=== PATIENT | female | born 1945 | race Caucasian/White ===

== ENCOUNTER 2016-07-22 09:45 | Inpatient (IN) | payer OTHER, MEDICARE ==
[~2016-07-22] VITALS: Ht 165.1 cm; Wt 78.9 kg
--- NOTE | 2016-07-22 10:00 | NUR ---
PT SIB DR NIETO FOR ABDOMINAL PAIN. PT STATES HX OF AAA WITH STENTS AND PT HAS BEEN GETTING INCREASING ABDOMINAL PAIN X 1 MONTH WITH A PULLING SENSATION AND INCREASED PAIN SINCE 299. PT STATES SHE HAS AN ABDOMINAL MESH ALSO
--- NOTE | 2016-07-22 10:07 | NUR ---
PT ALSO STATES BACK PAIN
--- NOTE | 2016-07-22 10:13 | ED GI/GU/ABDOMINAL COMPLAINT ---
History of Present Illness General Chief Complaint: Abdominal Pain/Flank Pain Stated Complaint: L FLANK/ABD PAIN Source: patient, family, old records Exam Limitations: no limitations Vital Signs & Intake/Output Vital Signs & Intake/Output Vital Signs Date Time Temp Pulse Resp B/P B/P Pulse O2 O2 Flow FiO2 Mean Ox Delivery Rate 07/22 1216 98.2 84 22 131/77 94 Room Air 07/22 1038 110 170/94 07/22 1031 96 07/22 0958 98.1 128 24 166/90 95 Room Air Allergies Coded Allergies: NO KNOWN ALLERGIES (01/08/13) Reconcile Medications Aspirin (Aspirin*) 81 MG TAB.CHEW 1 TAB PO DAILY HEART HEALTH (Reported) Metoprolol Tartrate 25 MG TABLET 1 TAB PO BID HEART (Reported) Pravastatin Sodium 10 MG TABLET 1 TAB PO DAILY CHOLESTROL (Reported) Triage Note: PT SIB DR NIETO FOR ABDOMINAL PAIN. PT STATES HX OF AAA WITH STENTS AND PT HAS BEEN GETTING INCREASING ABDOMINAL PAIN X 1 MONTH WITH A PULLING SENSATION AND INCREASED PAIN SINCE 299. PT STATES SHE HAS AN ABDOMINAL MESH ALSO Triage Nurses Notes Reviewed? yes ? n Is pt currently ? No Onset: Abrupt Duration: constant, getting worse, waxing and waning, X 1MONTHR WORSE X 7 HOURS Timing: recent history Quality/Severity: aching, sharpness Severity Numbers: 7 Location: epigastric, left upper quadrant, right upper quadrant Radiation: back Activities at Onset: sleep No Modifying Factors: none Associated Symptoms: DENIES HPI: 71-year-old female with history of ruptured AAA in 2013 requiring endovascular repair hypertension and high cholesterol presents emergency room complaining 1 month history of bilateral upper quadrant abdominal pain described as a pulling sensation is been getting progressively worse, and has been since 3:00 this morning. She denies any associated nausea vomiting or change in her bowel movements. No black or bloody stools. Patient denies fevers chills chest pain shortness of breath. The pain is radiating into her back. She does not smoke she denies alcohol use. She denies any discoloration of her skin. She is not taken anything for her symptoms. She had an outpatient workup performed last month that was unremarkable for the same (SHANNON BERMUDEZ) Past History Travel History Traveled to [place] past 21 day No Medical History Any Pertinent Medical History? see below for history Cardiovascular: hypertension, hyperlipidemia Gastrointestinal: ABDOMINAL COMPARTMENT SYNDROME History of MRSA: No History of VRE: No History of CDIFF: No Surgical History Surgical History: endovascular repair of ruptured aortic aneurysm Psychosocial History Who do you live with Spouse What is your primary language Welsh Tobacco Use: Quit >30 days ago ETOH Use: denies use Illicit Drug Use: denies illicit drug use Family History Hx Contributory? No (SHANNON BERMUDEZ) Review of Systems Review of Systems Constitutional: Reports: see HPI. All Other Systems: Reviewed and Negative Comments Review of systems: See HPI, All other systems negative. Constitutional, no chills no fever, no malaise no weight loss HEENT: no sore throat no congestion, no ear pain Cardiovascular: No chest pain , no palpitation Skin: no rashes, no change in skin Respiratory: No dyspnea no cough no sputum GI: No nausea no vomiting, no diarrhea, no bloating : No dysuria No hematuria, no frequency Muscle skeletal: No joint pain, no joint swelling, no back pain, no neck pain, Neurologic: No numbness no confusion, no headache Psych: No stress no depression,. Heme/endocrine: No bruising no bleeding Immunology: No lymphadenopathy (SHANNON BERMUDEZ) Physical Exam Physical Exam General Appearance: well developed/nourished Gastrointestinal: soft, non-tender Comments: Well-developed well-nourished person in no acute distress HEENT: Normal EENT exam; PERRL, EOMI, HEAD is atraumatic. moist mucous membranes. Neck: Supple, normal range of motion Back: Nontender, no CVA tenderness. Full range of motion Cardiovascular: Regular rate and rhythms no murmurs rubs Respiratory: Chest nontender.There were no bony deformities, no asymmetry. No respiratory distress. Patient speaking in full complete sentences. Breath sounds clear to auscultation bilaterally: NO W/R/R Abdomen: Soft, nontender nondistended, no appreciable organomegaly. Normal bowel sounds. No rebound/guarding, No appreciable enlargement of the abdominal aorta, No ascites. Extremity: No edema, full range of motion of extremities Neuro: Alert oriented x3, motor sensory normal, There were no obvious focal neurologic abnormalities. Skin: No appreciable rash on exposed skin, skin is warm and dry. Psych: Mood and affect is normal, memory and judgment is normal. Core Measures ACS in differential dx? Yes Severe Sepsis Present: No Septic Shock Present: No (ALEX DE LA TORRESHANNON) Progress Differential Diagnosis: AAA, bowel obstruction, colon cancer, diverticulitis, gastritis, hepatitis, hernia, ischemic bowel, inflamm bowel dis, perforated viscous, SBO Plan of Care: Orders Procedure Date/time Status HEPATIC FUNCTION PANEL 07/23 0600 Active BASIC ELECTROLYTES PLUS BUN&CR 07/23 0600 Active Regular Diet 07/22 D Active Vital Signs 07/22 1630 Active Teach/Educate 07/22 1630 Active Pain Treatment and Response 07/22 1630 Active Nutritional Intake, Monitor 07/22 1630 Active Isolation 07/22 1630 Active Intake & Output 07/22 1630 Active Patient Care Conference 07/22 1630 Active Activity/Ambulation 07/22 1630 Active Saline Lock 07/22 1342 Active Pathway - chart 07/22 1342 Active House Staff 07/22 1342 Active Admit to inpatient 07/22 1324 Active Vital Signs 07/22 1324 Active Code Status 07/22 1324 Active Patient Data 07/22 1306 Active Add-on Test (ER Only) 07/22 1056 Active Telemetry/Ranch Helper 07/22 1035 Active Intake & Output 07/22 1030 Active LIPASE 07/22 1028 Complete AMYLASE 07/22 1028 Complete EKG 07/22 1019 Active Saline Lock 07/22 1012 Active URINALYSIS 07/22 1012 Complete TROPONIN LEVEL 07/22 1012 Complete LACTIC ACID 07/22 1012 Complete COMPREHENSIVE METABOLIC PANEL 07/22 1012 Complete CBC WITHOUT DIFFERENTIAL 07/22 1012 Complete Current Medications Sig/Beatriz Start time Last Medication Dose Stop Time Status Admin Enoxaparin Sodium 40 MG DAILY 07/23 1000 AC (Lovenox) Docusate Sodium 100 MG BID 07/220 AC (Colace) Metoprolol Tartrate 25 MG BID 07/22 2200 AC (Lopressor) Polyethylene Glycol 17 GM AT BEDTIME 07/22 2200 AC (Miralax) Senna/Docusate Sodium 2 TAB AT BEDTIME 07/220 AC (Senokot S) Acetaminophen 650 MG Q6P PRN 07/22 1345 AC (Tylenol) Diphenhydramine HCl 25 MG Q6P PRN 07/22 1345 AC (Benadryl) Hydromorphone HCl 0.5 MG Q4P PRN 07/22 1345 AC (Dilaudid) Ondansetron HCl 4 MG Q6P PRN 07/22 1345 AC (Zofran) Oxycodone HCl 5 MG Q6H 07/22 1345 AC 07/22 (Roxicodone) 1404 Pravastatin Sodium 10 MG DAILY 07/22 1343 AC 07/22 (Pravachol) 1413 Aspirin 81 MG DAILY 07/22 1342 AC 07/22 (Aspirin) 1404 Laboratory Tests 07/22/16 1312: Lactic Acid Cancelled 07/22/16 1142: Urine Color YEL, Urine Clarity CLEAR, Urine pH 7.0, Ur Specific [place] <= 1.005 , Urine Protein NEG, Urine Ketones NEG, Urine Nitrite NEG, Urine Bilirubin NEG, Urine Urobilinogen 0.2, Ur Leukocyte Esterase NEG, Ur Microscopic EXAM NOT REQUIRED, Urine Hemoglobin NEG, Urine Glucose NEG 07/22/16 1028: Anion Gap 13, Estimated GFR > 60, BUN/Creatinine Ratio 16.7, Glucose 158 H, Lactic Acid 1.8, Calcium 9.7, Total Bilirubin 1.0, AST 57 H, ALT 82 H, Alkaline Phosphatase 350 H, Troponin I < 0.01, Total Protein 7.3, Albumin 3.7, Globulin 3.6, Albumin/Globulin Ratio 1.0 L, Amylase 45, Lipase 53, CBC w Diff MAN DIFF ORDERED, RBC 5.40, MCV 83.4, MCH 28.2, RDW 13.7, MPV 9.1, Gran % 71.5, Lymphocytes % 20.7, Monocytes % 7.1, Eosinophils % 0.2, Basophils % 0.5, Absolute Granulocytes 14.6 H, Absolute Lymphocytes 4.2 H, Absolute Monocytes 1.5 H, Absolute Eosinophils 0, Absolute Basophils 0.1, Platelet Estimate ADEQUATE, Normocytic RBCs VERIFIED, Normochromic RBCs VERIFIED, PUBS MCHC 33.8 Labs ordered old records reviewed patient medicated morphine 2 mg IV IV fluids. Patient is currently resting on the stretcher in no apparent distress case discussed with Dr. yap. Old records including previous blood work and ultrasound performed 1 month ago reviewed Old records reviewed the patient's white blood cell count dating back to 2012 has ranged anywhere from 12-20,000. PT PAIN FREE AT THIS TIME AFTER MEDICATED WITH MORPHINE I discussed with the patient at length all of their results. I advised need for admission given pain and recent CAT scan findings for oncology possible surgery consult I answered all of their questions, they feel comfortable with the plan and follow-up care. Case discussed with Dr. breen covering for dr chung jha (ALEX DE LA TORRE,SHANNON) Diagnostic Imaging: Viewed by Me: CT Scan. Discussed w/RAD: CT Scan. Radiology Impression: PATIENT: MARCOS REINOSO PRESENT AGE: 71 PATIENT ACCOUNT NO: [id number] : 44 LOCATION: [facility] ORDERING PHYSICIAN: SHANNON DE LA TORRE SERVICE DATE: 07/22/16 EXAM TYPE: CAT - CT ABD & PELVIS ANGIOGRAM EXAMINATION: CT ANGIOGRAM ABDOMEN AND PELVIS CLINICAL INFORMATION: Low abdominal, back pain. History of ruptured AAA. Rule out AAA leak. COMPARISON: 01/30/2014 TECHNIQUE: Multiplanar volumetric imaging was obtained through the abdomen. Following the administration of 95 mL of Optiray 320 intravenous contrast, images were obtained through the abdomen and pelvis in the arterial phase of enhancement. Images were reviewed on a dedicated 3-D workstation. DLP: 1352 mGy-cm FINDINGS: VASCULATURE: An aortobiiliac stent graft is in place. The aneurysm sac measures up to 4.5 cm in diameter distally. This is decreased in size as compared to the prior study from 2013 (5.6 cm). Of note, the right iliac component of the graft is slightly increased in caliber, measuring 2.5 cm, previously 2.3 cm. No additional findings to suggest endoleak. No evidence of rupture. There is mild narrowing of the celiac axis at its origin , likely due in part to median arcuate ligament compression. Distal branches are patent. There is a prominent gastroduodenal artery with a replaced right hepatic. There is mild atheromatous disease at the origin of the SMA without a critical stenosis. Bilateral renal arteries are patent. [place] are partially obscured by artifact from the stent graft. The left renal artery ostium appears widely patent. There is at least mild stenosis of the right external iliac artery at the bifurcation where it exits the iliac limb of the graft. There is more moderate to high-grade stenosis of the internal iliac artery in this region. Femoral arteries are patent. LUNG BASES: Innumerable noncalcified, solid pulmonary nodules are present in the lower lobes bilaterally, measuring between 0.2 x 1.9 cm in diameter, most compatible with metastatic disease. LIVER, GALLBLADDER, BILIARY TREE: Hypoattenuating lesions are present within the right hepatic lobe, measuring 6 x 4 and 4.3 x 3.2 cm. Additional smaller hepatic lesions are present. These are most compatible with metastatic disease. There is mild intrahepatic ductal dilatation. Stones are present within the gallbladder neck. Gallbladder is otherwise unremarkable. PANCREAS: Unremarkable. SPLEEN: Unremarkable. ADRENAL GLANDS: Unremarkable KIDNEYS AND URETERS: Bilateral extrarenal pelvises are noted. Punctate nonobstructing calculus is present in the right lower renal pole. A 1.8 cm nonenhancing cyst is present in the upper pole of the right kidney with a dystrophic calcification at its posterior wall. A smaller cyst adjacent to this is too small to characterize. No suspicious renal lesions are identified. Kidneys normal in size and cortical thickness. BLADDER: Normal. GASTROINTESTINAL TRACT: Stomach, small bowel, and colon are normal in caliber. The ligament of Treitz is relatively low. As seen on image 54 /108 of series 604, there is a 4.7 x 3.3 x 4.1 cm apple core type lesion of the descending colon, most compatible with a primary adenocarcinoma. There is marked infiltration of the omental and mesenteric fat, consistent with peritoneal spread of disease. A small amount of intraperitoneal free fluid is present in the ventral abdomen. ABDOMINAL WALL: Again seen is a large recurrent abdominal hernia with laxity of the anterior abdominal wall. LYMPH NODES: Multiple enlarged retroperitoneal lymph nodes are identified including a 1.2 cm left periaortic node on image 29/82 of series 7, increase in size as compared to the prior study from 2013. PELVIC VISCERA: Uterus and ovaries are unremarkable. OSSEOUS STRUCTURES: There is a mild superior endplate compression deformity at the L2 vertebral body which is likely related to a Schmorl's node. This is new from the prior study, potentially acute or subacute in nature. No additional fractures. No osseous lesions. IMPRESSION: 1. Decrease in size of the abdominal aortic aneurysm sac status post aortobiiliac stenting. No evidence of recurrent rupture. The right common iliac limb of the aneurysm is slightly increased in size as compared to prior (2.4 vs. 2.2 cm). 2. A 4.7 cm "apple core" type lesion of the descending colon, most compatible with primary colonic adenocarcinoma. There is associated peritoneal disease involving the omentum and adjacent mesentery with small to moderate volume of intraperitoneal fluid. 3. Multiple hepatic metastases. 4. Innumerable pulmonary metastases. 5. Mild retroperitoneal adenopathy. 6. Mild superior endplate compression deformity at the L2 vertebral body, likely acute to subacute in nature. This critical result was discussed by telephone with Dr. Funk at 12:25 PM on 07/22/2016 DICTATED BY: LIANET CROCKETT MD DATE/TIME DICTATED:07/22/161155 KITCHEN BATH DESIGNER:VIJAY DATE/TIME TRANSCRIBED:07/22/161155 CONFIDENTIAL, DO NOT COPY WITHOUT APPROPRIATE AUTHORIZATION. <Electronically signed in Other Vendor System> SIGNED BY: LIANET CROCKETT MD 07/22/16 1242 Initial ED EKG: sinus tach at 110, no acute ST segment changes normal axis Prior EKG: unchanged (12/2102) Rhythm Strip: normal sinus rhythm (SHANNON BERMUDEZ) Departure Departure Time of Disposition: 1258 Disposition: STILL A PATIENT Condition: Stable Clinical Impression Primary Impression: Colon cancer Secondary Impressions: Compression fracture, Intractable pain, Leukocytosis, Liver metastases, Lung metastasis Referrals: CONSUELO NIETO MD (PCP/Family) Departure Forms: Customer Survey General Discharge Information Admission Note Spoke With: CINTHIA BREEN MD Documentation of Exam: Documentation of any treatments & extenuating circumstances including Concerns Regarding Discharge (functional status, medication knowledge or non-compliance, living conditions, etc.) that warrant an admission rather than observation: oncology consult, surgery, trend labs, iv pain control preamture discharge would be medically harmful (SHANNON BERMUDEZ) PA/MACHINE STRAP BUCKLER Co-Sign Statement Statement: ED Attending supervision documentation- [X] I saw and evaluated the patient. I have also reviewed all the pertinent lab results and diagnostic results. I agree with the findings and the plan of care as documented in the PA's/MACHINE STRAP BUCKLER's documentation. [] I have reviewed the ED Record and agree with the PA's/MACHINE STRAP BUCKLER's documentation. [] Additions or exceptions (if any) to the PAs/MACHINE STRAP BUCKLER's note and plan are summarized below: [] (KWASI YAP DO
[2016-07-22] MEDS ORDERED: METOPROLOL TART25 M1 PO (10:28)
[2016-07-22] MEDS ORDERED: ASPIRIN81 M4 PO (10:29)
[2016-07-22] MEDS ORDERED: PRAVASTATIN SOD10 M2 PO (10:29)
--- NOTE | 2016-07-22 10:30 | NUR ---
IV ESTABLISHED BLOOD DRAWN SENT TO LAB EKG IN PROGRESS
[2016-07-22 10:34] LABS: ABSOLUTE EOSINOPHIL COUNT 0 /CUMM (0.0-0.7); ABSOLUTE MONOCYTE COUNT 1.5 /CUMM (0.10-0.60); MEAN CORPUSCULAR VOLUME 83.4 FL (81.0-99.0); PLATELET COUNT 314 /CUMM (130-400)
[2016-07-22 10:38] LABS: ABSOLUTE BASOPHIL COUNT 0.1 /CUMM (0.0-0.2); ABSOLUTE GRANULOCYTE CT 14.6 /CUMM (1.4-6.5); ABSOLUTE LYMPH COUNT 4.2 /CUMM (1.2-3.4); BASOPHIL % 0.5 % (0.0-2.0); EOSINOPHIL % 0.2 % (0-5); GRANULOCYTE % 71.5 % (42.2-75.2); MEAN CORPUSCULAR HGB 28.2 PG (27.0-31.0); MEAN CORPUSCULAR HGB CONC 33.8 G/DL (33.0-37.0); MEAN PLATELET VOLUME 9.1 FL (7.4-10.4); RBC DISTRIBUTION WIDTH 13.7 % (11.5-14.5)
--- NOTE | 2016-07-22 10:41 | NUR ---
PT MEDICATED FOR PAIN SINUS TACH ON THE MONITOR
[2016-07-22 11:12] LABS: WHITE BLOOD CELL COUNT 20.6 /CUMM (4.8-10.8)
--- NOTE | 2016-07-22 11:26 | NUR ---
PT TO CAT SCAN
--- NOTE | 2016-07-22 11:36 | NUR ---
PT RETURNED FROM CT SCAN
--- NOTE | 2016-07-22 11:43 | NUR ---
URINE SPEC. SENT TO LAB
--- NOTE | 2016-07-22 11:48 | NUR ---
PT AMBULATED TO BR FOR URINE SPEC. PT STATES HER PAIN HAS GONE AWAY AFTER PAIN MEDS
--- NOTE | 2016-07-22 12:42 | CT SCAN REPORT ---
EXAMINATION: CT ANGIOGRAM ABDOMEN AND PELVIS CLINICAL INFORMATION: Low abdominal, back pain. History of ruptured AAA. Rule out AAA leak. COMPARISON: 01/30/2014 TECHNIQUE: Multiplanar volumetric imaging was obtained through the abdomen. Following the administration of 95 mL of Optiray 320 intravenous contrast, images were obtained through the abdomen and pelvis in the arterial phase of enhancement. Images were reviewed on a dedicated 3-D workstation. DLP: 1352 mGy-cm FINDINGS: VASCULATURE: An aortobiiliac stent graft is in place. The aneurysm sac measures up to 4.5 cm in diameter distally. This is decreased in size as compared to the prior study from 2013 (5.6 cm). Of note, the right iliac component of the graft is slightly increased in caliber, measuring 2.5 cm, previously 2.3 cm. No additional findings to suggest endoleak. No evidence of rupture. There is mild narrowing of the celiac axis at its origin, likely due in part to median arcuate ligament compression. Distal branches are patent. There is a prominent gastroduodenal artery with a replaced right hepatic. There is mild atheromatous disease at the origin of the SMA without a critical stenosis. Bilateral renal arteries are patent. Ost[place] are partially obscured by artifact from the stent graft. The left renal artery ostium appears widely patent. There is at least mild stenosis of the right external iliac artery at the bifurcation where it exits the iliac limb of the graft. There is more moderate to high-grade stenosis of the internal iliac artery in this region. Femoral arteries are patent. LUNG BASES: Innumerable noncalcified, solid pulmonary nodules are present in the lower lobes bilaterally, measuring between 0.2 x 1.9 cm in diameter, most compatible with metastatic disease. LIVER, GALLBLADDER, BILIARY TREE: Hypoattenuating lesions are present within the right hepatic lobe, measuring 6 x 4 and 4.3 x 3.2 cm. Additional smaller hepatic lesions are present. These are most compatible with metastatic disease. There is mild intrahepatic ductal dilatation. Stones are present within the gallbladder neck. Gallbladder is otherwise unremarkable. PANCREAS: Unremarkable. SPLEEN: Unremarkable. ADRENAL GLANDS: Unremarkable KIDNEYS AND URETERS: Bilateral extrarenal pelvises are noted. Punctate nonobstructing calculus is present in the right lower renal pole. A 1.8 cm nonenhancing cyst is present in the upper pole of the right kidney with a dystrophic calcification at its posterior wall. A smaller cyst adjacent to this is too small to characterize. No suspicious renal lesions are identified. Kidneys normal in size and cortical thickness. BLADDER: Normal. GASTROINTESTINAL TRACT: Stomach, small bowel, and colon are normal in caliber. The ligament of Treitz is relatively low. As seen on image 54/108 of series 604, there is a 4.7 x 3.3 x 4.1 cm apple core type lesion of the descending colon, most compatible with a primary adenocarcinoma. There is marked infiltration of the omental and mesenteric fat, consistent with peritoneal spread of disease. A small amount of intraperitoneal free fluid is present in the ventral abdomen. ABDOMINAL WALL: Again seen is a large recurrent abdominal hernia with laxity of the anterior abdominal wall. LYMPH NODES: Multiple enlarged retroperitoneal lymph nodes are identified including a 1.2 cm left periaortic node on image 29/82 of series 7, increase in size as compared to the prior study from 2014. PELVIC VISCERA: Uterus and ovaries are unremarkable. OSSEOUS STRUCTURES: There is a mild superior endplate compression deformity at the L2 vertebral body which is likely related to a Schmorl's node. This is new from the prior study, potentially acute or subacute in nature. No additional fractures. No osseous lesions. IMPRESSION: 1. Decrease in size of the abdominal aortic aneurysm sac status post aortobiiliac stenting. No evidence of recurrent rupture. The right common iliac limb of the aneurysm is slightly increased in size as compared to prior (2.4 vs. 2.2 cm). 2. A 4.7 cm "apple core" type lesion of the descending colon, most compatible with primary colonic adenocarcinoma. There is associated peritoneal disease involving the omentum and adjacent mesentery with small to moderate volume of intraperitoneal fluid. 3. Multiple hepatic metastases. 4. Innumerable pulmonary metastases. 5. Mild retroperitoneal adenopathy. 6. Mild superior endplate compression deformity at the L2 vertebral body, likely acute to subacute in nature. This critical result was discussed by telephone with Dr. Funk at 12:25 PM on 07/22/2016
--- NOTE | 2016-07-22 12:55 | NUR ---
PT GIVEN COFFEE
--- NOTE | 2016-07-22 14:09 | NUR ---
BED 219-4
--- NOTE | 2016-07-22 14:18 | NUR ---
REPORT GIVEN TO JUNE TAILINGS WORKER NOTIFIED
--- NOTE | 2016-07-22 14:43 | History & Physical ---
FILI RÍOS 07/22/16 1442: General Information and HPI MD Statement: I have seen and personally examined NELIDA REINOSO and documented this H&P. The patient is a 71 year old F who presented with a patient stated chief complaint of abdominal pain Source of Information: patient, family, old records Exam Limitations: no limitations History of Present Illness: 71 year-old woman former smoker with medical history significant for a ruptured abdominal aortic aneurysm status post endovascular aortic aneurysm repair (2012) . Abdominal compartment syndrome status post surgery,hypertension, hyperlipidemia brought to ED by her for worsening abdominal pain. Per patient she's been having lower abdominal discomfort since past one month she has been intermittent and severity was about a 4 out of 10 she initially attributed this to her meshin her abdomen for hernia however today she felt a sharp bandlike pain around her mid epigastrium, with a severity of 10 at 10. Denies fever, nausea, vomiting, decreased poor intake, urinary symptoms states she had some constipation however she had a bowel movement on Friday. She has chronic back pain and this is unchanged. Denies any numbness tingling or bowel or bladder incontinence. Allergies/Medications Allergies: Coded Allergies: NO KNOWN ALLERGIES (01/08/13) Home Med list Aspirin (Aspirin*) 81 MG TAB.CHEW 1 TAB PO DAILY HEART HEALTH (Reported) Metoprolol Tartrate 25 MG TABLET 1 TAB PO BID HEART (Reported) Pravastatin Sodium 10 MG TABLET 1 TAB PO DAILY CHOLESTROL (Reported) Compliance With Home Meds: GOOD Past History Travel History Traveled to [place] past 21 day No Medical History Cardiovascular: hypertension, hyperlipidemia Gastrointestinal: ABDOMINAL COMPARTMENT SYNDROME History of MRSA: No History of VRE: No History of CDIFF: No Surgical History Surgical History: endovascular repair of ruptured aortic aneurysm Past Family/Social History Psychosocial History Where do you live? Home Who Do You Live With? spouse Primary Language: Serbian Smoking Status: Former Smoker ETOH Use: denies use Illicit Drug Use: denies illicit drug use Functional Ability ADLs Independent: dressing, eating, toileting, bathing. Ambulation: independent IADLs Independent: shopping, housework, finances, food prep, telephone, transportation , medication admin. Review of Systems Review of Systems Constitutional: Denies: chills, diaphoresis, fever, malaise, weakness, unexplained weight loss. Cardiovascular: Denies: chest pain, edema, orthopena, palpitations, peripheral edema, syncope. Respiratory: Denies: cough, hemoptysis, orthopnea, short of breath, sputum production, stridor, wheezing. GI: Reports: abdominal pain. Denies: bloating, constipation, diarrhea, distention, bowel incontinence, melena, nausea, bloody stool, changes in stool, vomiting, steatorrhea. Genitourinary: Denies: discharge, dysuria, frequency, hematuria, hesitation, nocturia, pain, urgency. Exam & Diagnostic Data Last 24 Hrs of Vital Signs/I&O Vital Signs Date Time Temp Pulse Resp B/P B/P Pulse O2 O2 Flow FiO2 Mean Ox Delivery Rate 07/22 1601 98.1 102 20 124/66 94 Room Air 07/22 1216 98.2 84 22 131/77 94 Room Air 07/22 1038 110 170/94 07/22 1031 96 07/22 0958 98.1 128 24 166/90 95 Room Air Intake & Output 07/22 1600 07/22 0800 07/22 0000 Intake Total 1120 Output Total Balance 1120 Intake, IV 1000 Intake, Oral 120 Patient 174 lb Weight Physical Exam General Appearance Alert, Oriented X3, Cooperative, No Acute Distress, anxious HEENT Atraumatic, PERRLA, EOMI, Mucous Membr. moist/pink Cardiovascular Regular Rate, Normal S1, Normal S2 Lungs Clear to Auscultation, Normal Air Movement Abdomen Normal Bowel Sounds, palpable masses, surgical scar Extremities No Edema, Normal Pulses Last 24 Hrs of Labs/Jorge Luis: Laboratory Tests 07/22/16 1312: Lactic Acid Cancelled 07/22/16 1142: Urine Color YEL, Urine Clarity CLEAR, Urine pH 7.0, Ur Specific [place] <= 1.005 , Urine Protein NEG, Urine Ketones NEG, Urine Nitrite NEG, Urine Bilirubin NEG, Urine Urobilinogen 0.2, Ur Leukocyte Esterase NEG, Ur Microscopic EXAM NOT REQUIRED, Urine Hemoglobin NEG, Urine Glucose NEG 07/22/16 1028: Anion Gap 13, Estimated GFR > 60, BUN/Creatinine Ratio 16.7, Glucose 158 H, Lactic Acid 1.8, Calcium 9.7, Total Bilirubin 1.0, AST 57 H, ALT 82 H, Alkaline Phosphatase 350 H, Troponin I < 0.01, Total Protein 7.3, Albumin 3.7, Globulin 3.6, Albumin/Globulin Ratio 1.0 L, Amylase 45, Lipase 53, CBC w Diff MAN DIFF ORDERED, RBC 5.40, MCV 83.4, MCH 28.2, RDW 13.7, MPV 9.1, Gran % 71.5, Lymphocytes % 20.7, Monocytes % 7.1, Eosinophils % 0.2, Basophils % 0.5, Absolute Granulocytes 14.6 H, Absolute Lymphocytes 4.2 H, Absolute Monocytes 1.5 H, Absolute Eosinophils 0, Absolute Basophils 0.1, Platelet Estimate ADEQUATE, Normocytic RBCs VERIFIED, Normochromic RBCs VERIFIED, PUBS MCHC 33.8 Diagnostic Data EKG Results nsr Other Results SERVICE DATE: 07/22/16 EXAM TYPE: CAT - CT ABD & PELVIS ANGIOGRAM IMPRESSION: 1. Decrease in size of the abdominal aortic aneurysm sac status post aortobiiliac stenting. No evidence of recurrent rupture. The right common iliac limb of the aneurysm is slightly increased in size as compared to prior (2.4 vs. 2.2 cm). 2. A 4.7 cm "apple core" type lesion of the descending colon, most compatible with primary colonic adenocarcinoma. There is associated peritoneal disease involving the omentum and adjacent mesentery with small to moderate volume of intraperitoneal fluid. 3. Multiple hepatic metastases. 4. Innumerable pulmonary metastases. 5. Mild retroperitoneal adenopathy. 6. Mild superior endplate compression deformity at the L2 vertebral body, likely acute to subacute in nature. Assessment/Plan Assessment: 71 year-old woman former smoker with medical history significant for a ruptured abdominal aortic aneurysm status post endovascular aortic aneurysm repair (2012) . Abdominal compartment syndrome status post surgery,hypertension, hyperlipidemia brought to ED by her for worsening abdominal pain. Found to have 4.7 cm "apple core" type lesion of the descending colon, most compatible with primary colonic adenocarcinoma. There is associated peritoneal disease involving the omentum and adjacent mesentery with small to moderate volume of intraperitoneal fluid with multiple hepatic metastases and pulmonary metastases. Problem list: primary colonic adenocarcinoma hypertension hyperlipidemia Plan: admit to gen med, vitals per protocol Surgery and cardiology consult placed Pain control with Dilaudid and Roxicodone continue metoprolol Xanax for anxiety DVT prophylaxis with Lovenox full code As Ranked By This Provider Problem List: 1. Liver metastases 2. Lung metastasis 3. Colon cancer Core Measures/Miscellaneous Acute Coronary Syndrome ACS Diagnosis: No Cerebrovascular Accident CVA/TIA Diagnosis: No Congestive Heart Failure CHF Diagnosis: No Venous Thromboembolism VTE Risk Factors: Age > 40, Cancer/chemo/oth therapy, Obesity No Mech VTE prophylaxis d/t: No contraindications No VTE Pharm Prophylaxis d/t: No contraindications VTE Diagnosis: No VTE Type: NONE VTE Confirmed by (Test): NONE Severe Sepsis Severe Sepsis Present: No Septic Shock Septic Shock Present: No Miscellaneous Documentation Attending Case Discussed With: CINTHIA ARAIZA MD Primary Care Physician: CONSUELO NIETO MD Patient sees these Specialists Dr. 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 She is treated in the ER with opioids and Ativan for anxiety. A CAT scan of the abdomen showed what looks to be a primary colon adenocarcinoma with multiple sites of metastasis including the liver and bone. She has never had a screening colonoscopy. At this time her pain appears to be well controlled. She'll be admitted to general medicine for pain management. Given the extent of her disease, we will likely need input from oncology regarding potential palliative chemotherapy? Clinical trials. Once her pain is under control we'll discharge the patient with further outpatient testing. CINTHIA ARAIZA MD 07/23/16 0936: Attending MD Review Statement Attending Statement Attending MD Statement: examined this patient, discuss w/resident/PA/RETURN TO FACTORY CLERK, agreed w/resident/PA/RETURN TO FACTORY CLERK, reviewed EMR data (avail)
--- NOTE | 2016-07-22 14:51 | PN- Student ---
Subjective Subjective: CC: abdominal pain HPI: Pt is a 71yo female with PMH significant for ruptured AAA 12/2012 and emphysema s/p 100 pack year smoking history presents to the ED with her with severe upper abdominal pain. Pt reports intermittent, non-radiating, abdominal pain x1.5months starting across the lower abdomen, and moving to the upper abdomen 2wks ago. Pt states 6weeks ago she had a URI and cough after which abdominal pain began. She states pain has been "on and off" with max pain 5/10. Pain would occasionally wake her in the night and keep her awake for 2 hours before she was able to return to sleep. Pt takes 325mg aspirin for pain which helps. Napping and lying on either side,and passing stool also alleviates sx. Denies exacerbating factors. Pt attributed the pain to recent URI and surgical mesh s/p ventral hernia repair. Pt reported this abdominal pain to Dr. Oliveira ( vascular surgeon) in 05/2016 and he recommended f/u with Dr. Gonzalez(?) "more of an abdominal doctor." She also reported the pain to Dr. Solomon 05/2016 who ordered an abd u/s (done 05/30/2016) and recommended further testing. Pt was lost to follow-up after these encounters until she presented today. Pt stated she didn't feel well enough to do the follow-up. Pt states she was also reluctant to seek medical attention in June due to significant dates for her family in June ( dates/ dates). Pt reports upper abdominal pain suddenly worsened overnight. She was awoken from sleep with 8/10 pain, "like I could take a knife and cut something out of my stomach," around 3AM, drank 0.5cup coffee then laid down. Since waking at 3AM with pain, pain has been persistent. Pt characterizes the pain as a "pulling pain." 10/10 pain on arrival to ED. Improved to 4/10 s/p 2mg morphine in ED. Pt reports chronic back pain 2/2 to sciatica and constipation, but denies any change to these symptoms in the last 1.5 months. Pt denies screening hx of colonoscopy. Denies appetite change/nausea/vomiting/diarrhea. Denies blood or mucus in stool. Denies black tarry stools. Pt reports thin stools about 2cm diameter. Last bm two days ago. Denies flatus today. Allergies: NKDA Medications (home): Aspirin (Aspirin*) 81 MG TAB.CHEW 1 TAB PO DAILY HEART HEALTH (Reported) Metoprolol Tartrate 25 MG TABLET 1 TAB PO BID HEART (Reported) Pravastatin Sodium 10 MG TABLET 1 TAB PO DAILY CHOLESTROL (Reported) Current Medications Sig/Beatriz Start time Last Medication Dose Route Stop Time Status Admin Acetaminophen 650 MG Q6P PRN 07/22 1345 AC PO Alprazolam 0 .STK-MED ONE 07/22 1405 DC PO Alprazolam 0.25 MG ONCE ONE 07/22 1400 DC 07/22 PO 07/22 1401 1404 Aspirin 0 .STK-MED ONE 07/22 1405 DC PO Aspirin 81 MG DAILY 07/22 1342 AC 07/22 PO 1404 Diphenhydramine HCl 25 MG Q6P PRN 07/22 1345 AC IV Docusate Sodium 100 MG BID 07/22 2200 AC PO Enoxaparin Sodium 40 MG DAILY 07/23 1000 AC SC Hydromorphone HCl 0.5 MG Q4P PRN 07/22 1345 AC IV Lorazepam 0.5 MG ONCE ONE 07/22 1315 DC 07/22 IV 07/22 1316 1310 Lorazepam 0 .STK-MED ONE 07/22 1306 DC .ROUTE Metoprolol Tartrate 25 MG BID 07/22 2200 AC PO Morphine Sulfate 0 .STK-MED ONE 07/22 1039 DC .ROUTE Morphine Sulfate 2 MG ONCE ONE 07/22 1030 DC 07/22 IV 07/22 1031 1041 Ondansetron HCl 4 MG Q6P PRN 07/22 1345 AC IV Oxycodone HCl 0 .STK-MED ONE 07/22 1405 DC PO Oxycodone HCl 5 MG Q6H 07/22 1345 AC 07/22 PO 1946 Polyethylene Glycol 17 GM AT BEDTIME 07/22 2200 AC PO Pravastatin Sodium 10 MG DAILY 07/22 1343 AC 07/22 PO 1413 Senna/Docusate Sodium 2 TAB AT BEDTIME 07/22 2200 AC PO Sodium Chloride 1,000 ML BOLUS ONE 07/22 1030 DC 07/22 IV 07/22 1129 1041 PMH: Ruptured AAA 12/2012 emphysema PSHx: repair of ruptured AAA, 12/2012 ventral hernia repair with mesh FHx: Father - 61yo, CVA? Mother - 80yo, DM complications Maternal grandmother - 71yo, breast ca Maternal grandfather - 90yo, "old age" Son x2 - 51yo, 52yo - healthy grandchildren x4 - healthy Social Hx: Pt is retired after a 40 year career, and lives at home with her of 53 years and eldest son. Pt has two grown sons, three grandchildren (3 girls, 1 boy ), and four great-grandchildren (2 girls, 2 boys). 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 Pt reports 100 pack year smoking history - 2 packs/day x50yrs, quit smoking 01/03/13. Denies EtOH. ROS: Const: denies fever, +chills last night, denies appetite changes, 4lbs weight loss unknown time frame CV: denies chest pain, +palpitations when she feels nervous Resp: SOB due to emphysema worse in the summer, denies worsening of sx GI: see HPI : denies dysuria Endo: denies urinary frequency MSK: denies joint swellling/muscle pain Neuro: denies tomas, denies dizziness Objective Objective: Vital Signs Date Time Temp Pulse Resp B/P B/P Pulse O2 O2 Flow FiO2 Mean Ox Delivery Rate 07/22 1601 98.1 102 20 124/66 94 Room Air 07/22 1216 98.2 84 22 131/77 94 Room Air 07/22 1038 110 170/94 07/22 1031 96 07/22 0958 98.1 128 24 166/90 95 Room Air Physical Exam: Gen: elderly lady lying in bed, NAD HEENT: PERRLA, EOMI, dentition extracted 30+ years ago, wears dentures CV: S1S2, RRR, no murmurs/rubs/gallops Pulm: CTA BL, no crackles/rhonchi/rales Abd: distended abdomen, surgical scar along the midline, +bowel sounds, dull to percussion, soft, slightly tender to palpation in the upper left quadrant Neuro: AAOx4, CN II-XII grossly intact Psych: mood - "better after talking", broad affect Ext: peripheral pulses present Skin: warm, dry, well-perfused Results Results: Laboratory Tests 07/22/16 1312: Lactic Acid Cancelled 07/22/16 1142: Urine Color YEL, Urine Clarity CLEAR, Urine pH 7.0, Ur Specific [place] <= 1.005 , Urine Protein NEG, Urine Ketones NEG, Urine Nitrite NEG, Urine Bilirubin NEG, Urine Urobilinogen 0.2, Ur Leukocyte Esterase NEG, Ur Microscopic EXAM NOT REQUIRED, Urine Hemoglobin NEG, Urine Glucose NEG 07/22/16 1028: Anion Gap 13, Estimated GFR > 60, BUN/Creatinine Ratio 16.7, Glucose 158 H, Lactic Acid 1.8, Calcium 9.7, Total Bilirubin 1.0, AST 57 H, ALT 82 H, Alkaline Phosphatase 350 H, Troponin I < 0.01, Total Protein 7.3, Albumin 3.7, Globulin 3.6, Albumin/Globulin Ratio 1.0 L, Amylase 45, Lipase 53, CBC w Diff MAN DIFF ORDERED, RBC 5.40, MCV 83.4, MCH 28.2, RDW 13.7, MPV 9.1, Gran % 71.5, Lymphocytes % 20.7, Monocytes % 7.1, Eosinophils % 0.2, Basophils % 0.5, Absolute Granulocytes 14.6 H, Absolute Lymphocytes 4.2 H, Absolute Monocytes 1.5 H, Absolute Eosinophils 0, Absolute Basophils 0.1, Platelet Estimate ADEQUATE, Normocytic RBCs VERIFIED, Normochromic RBCs VERIFIED, PUBS MCHC 33.8 07/22/2016 CTA Abd/Pelvis: IMPRESSION: 1. Decrease in size of the abdominal aortic aneurysm sac status post aortobiiliac stenting. No evidence of recurrent rupture. The right common iliac limb of the aneurysm is slightly increased in size as compared to prior (2.4 vs. 2.2 cm). 2. A 4.7 cm "apple core" type lesion of the descending colon, most compatible with primary colonic adenocarcinoma. There is associated peritoneal disease involving the omentum and adjacent mesentery with small to moderate volume of intraperitoneal fluid. 3. Multiple hepatic metastases. 4. Innumerable pulmonary metastases. 5. Mild retroperitoneal adenopathy. 6. Mild superior endplate compression deformity at the L2 vertebral body, likely acute to subacute in nature. 05/30/2016 EXAM TYPE: US - US-COMPLETE ABDOMEN EXAMINATION: US ABDOMEN COMPLETE CLINICAL INFORMATION: Pain and abdominal mass. Other intra-abdominal and pelvic swelling, mass and lump. COMPARISON: CT of the abdomen and pelvis 01/30/2014. TECHNIQUE:Real-time imaging of the abdominal viscera. Technically difficult study secondary to body habitus. FINDINGS: PANCREAS: Obscured by gas. ABDOMINAL AORTA: The proximal segment is normal in caliber. INFERIOR VENA CAVA: Visualized portions are normal. LIVER: Suboptimal evaluation. The liver demonstrates normal size, contour and echogenicity. No focal lesion or intrahepatic biliary duct dilatation. GALLBLADDER: Not visualized. COMMON BILE DUCT: Normal in caliber measuring 0.3 cm in diameter. RIGHT KIDNEY: There is a 1 cm cyst in the upper pole. No hydronephrosis or renal calculi. The kidney measures 10.0 cm in maximum dimension. LEFT KIDNEY: Normal. No hydronephrosis. No renal calculi or focal parenchymal lesions. The kidney measures 11.0 cm in maximum dimension. SPLEEN: Normal. The spleen measures 10.3 cm in maximum dimension. FREE FLUID: None. IMPRESSION: Unremarkable ultrasound of the abdomen. 01/30/2014 EXAM TYPE: CAT - CT ABD & PELVIS W ORAL & IV CO FINDINGS: LUNG BASES: Scarring and hypodense material in the right middle lobe paramediastinal region is a stable finding. The lung bases are otherwise clear. No pleural or pericardial effusions. LIVER, GALLBLADDER, AND BILIARY TREE: The liver is normal in size, shape, and attenuation. No focal hepatic lesion or biliary ductal dilatation is present. Gallbladder is physiologically distended. A few tiny calcified gallstones are present. No pericholecystic fluid or inflammatory changes. No gallbladder wall thickening. PANCREAS: Unremarkable. SPLEEN: Unremarkable. ADRENAL GLANDS: Thickening of the bilateral adrenal glands, left greater than right is a stable finding. No discrete nodule. KIDNEYS AND URETERS: The kidneys are normal in size, shape, and attenuation. No hydronephrosis, hydroureter, or calculi seen. No perinephric stranding. A 2 cm hypodense right renal upper pole lesion laterally is stable and represents a cyst. A 1 cm hypodense lesion in the right mid to lower kidney anterolaterally is stable representing a cyst as well. A 1 cm exophytic hypodense lesion arising from the mid left kidney anterolaterally is stable representing a cyst. BLADDER: Unremarkable. GASTROINTESTINAL TRACT: The small and large bowel are unremarkable. The appendix is unremarkable. ABDOMINAL WALL: Postsurgical changes of ventral wall hernia repair are seen. Hernia mesh is in place. There is significant laxity of the hernial mesh with multiple bowel loops protruding into it. An anterior abdominal wall midline fat- containing hernia is noted superior to the superior margin of the mesh, approximately 9 cm caudal to the xiphoid process. It measures approximately 2.0 x 1.5 x 7.4 cm in craniocaudal, AP and transverse dimensions. There are likely surgical clips in the left inguinal region. LYMPH NODES: Normal. VASCULAR: Postsurgical changes aortic aneurysm repair are noted with aorto bi- common iliac stent graft in place. No evidence of of periaortic fluid or hematoma. The celiac axis and SMA are well patent. PELVIC VISCERA: The uterus and ovaries are unremarkable. OSSEOUS STRUCTURES: There is some diffuse osseous demineralization. Moderate narrowing of the L4-L5 disc space with vacuum disc phenomenon. Mild facet arthropathy is noted in the lower lumbar spine. No suspicious lytic or blastic osseous lesions. IMPRESSION: 1. Anterior abdominal wall hernia repair with mesh in place. There is significant laxity of the mesh with multiple bowel loops protruding into it. No definite recurrent hernia through the mesh is noted. Fat-containing hernia superior to the superior margin of the mesh is a stable finding. 2. Stable bilateral renal hypodense lesions, consistent with cysts. 3. Cholelithiasis without evidence of acute cholecystitis. 4. Postsurgical changes of abdominal aortic aneurysm repair with aorto bi-common iliac stent graft in place. No evidence of periaortic hematoma or fluid collection. Assessment/Plan Assessment: Pt is a 71yo female with PMH significant for ruptured AAA 12/2012 and emphysema s/p 100 pack year smoking history presents to the ED with severe upper abdominal pain. Pt reports intermittent, non-radiating, abdominal pain x1.5months starting across the lower abdomen, and moving to the upper abdomen 2wks ago. Max pain 5/ 10. Pain suddenly worsened overnight to 8/10 and has been persistent. In the ED, CTA abdomen/pelvis was ordered and found extensive metastatic disease. Pt not previously aware of cancer. Pt was admitted to [facility] floor for pain management. Plan: #1 Abdominal Pain: Based on CTA Abd/Pelvis, the etiology of this pt's abdominal pain is likely due to the extensive metastatic disease found. CTA Abd/Pelvis IMPRESSION: 1. Decrease in size of the abdominal aortic aneurysm sac status post aortobiiliac stenting. No evidence of recurrent rupture. The right common iliac limb of the aneurysm is slightly increased in size as compared to prior (2.4 vs. 2.2 cm). 2. A 4.7 cm "apple core" type lesion of the descending colon, most compatible with primary colonic adenocarcinoma. There is associated peritoneal disease involving the omentum and adjacent mesentery with small to moderate volume of intraperitoneal fluid. 3. Multiple hepatic metastases. 4. Innumerable pulmonary metastases. 5. Mild retroperitoneal adenopathy. 6. Mild superior endplate compression deformity at the L2 vertebral body, likely acute to subacute in nature. CT with contrast 01/30/2014: GASTROINTESTINAL TRACT: The small and large bowel are unremarkable. The appendix is unremarkable. Most recent findings are consistent with a primary colorectal cancer. Pt's most recent CT in 01/2014 was performed with IV and Oral contrast and did not demonstrate any suspicious lesions in the GI tract. Abd u/s 05/2016 was limited by body habitus, but also unremarkable. Pt denies prior colonoscopy. Pt states her last BM was two days ago and denies flatus today. Denies nausea/vomiting. -Monitor for bowel obstruction -Surgical consult for possible palliative surgery -Oncology consultation -Management of pain with morphine, PRN -Management of anxiety with Xanax PO PRN -regular diet #2 leukocytosis: WBC 20.6. Leukocytosis in the setting of cancer contributes to increased risk of VTE and increased mortality in pts initiating systemic chemotherapy. (Arjun et. al. 2010) -Oncology consultation -DVT prophylaxis Juanito - PCP Tee - vascular surgeon
[2016-07-22 16:01] VITALS: BP 124/66
--- NOTE | 2016-07-22 19:17 | NUR ---
NURSING NOTE: PATIENT ARRIVED TO FLOOR VIA STRETCHER WITH DISTRIBUTION FROM ER. PATIENT A/OX3, DENIES PAIN AT THIS TIME. PATIENT VSS. BELONGINGS ARRIVED WITH PATIENT AND FAMILY PLACED AT BEDSIDE. WILL CONTINUE TO MONITOR.
--- NOTE | 2016-07-22 19:28 | Cons- General Surgery ---
General Information and HPI History of Present Illness: to be completed Allergies/Medications Allergies: Coded Allergies: NO KNOWN ALLERGIES (01/08/13) Home Med List: Aspirin (Aspirin*) 81 MG TAB.CHEW 1 TAB PO DAILY HEART HEALTH (Reported) Metoprolol Tartrate 25 MG TABLET 1 TAB PO BID HEART (Reported) Pravastatin Sodium 10 MG TABLET 1 TAB PO DAILY CHOLESTROL (Reported) Past History Medical History Blood Transfusion Hx: Yes Neurological: NONE EENT: NONE Cardiovascular: hypertension, hyperlipidemia Respiratory: emphysema Gastrointestinal: ABDOMINAL COMPARTMENT SYNDROME Hepatic: NONE Renal: NONE Musculoskeletal: NONE Psychiatric: NONE Endocrine: NONE Blood Disorders: NONE Cancer(s): colon/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 Home Who Do You Live With? spouse Primary Language: Cam[place]onian Smoking Status: Former Smoker ETOH Use: denies use Illicit Drug Use: denies illicit drug use Functional Ability ADLs Independent: dressing, eating, toileting, bathing. Ambulation: independent IADLs Independent: shopping, housework, finances, food prep, telephone, transportation , medication admin. Assessment/Plan Assessment/Plan to be completed Consult Acknowledgment - Thank you for your consult request.
[2016-07-22 21:54] VITALS: BP 166/84
[2016-07-23 06:29] VITALS: BP 110/62
--- NOTE | 2016-07-23 06:59 | Cons- Oncology ---
General Information and HPI Consulting Request Date of Consult: 07/23/16 Requested By: CINTHIA ARAIZA MD History of Present Illness: 71-year-old woman admitted for abdominal pain is found to have CAT scan findings suggestive of metastatic colon cancer. Patient is extremely anxious. Over the last month, she has experienced abdominal pain associated with a change in bowel habits. She denied blood loss. Patient has never had screening colonoscopy. Allergies/Medications Allergies: Coded Allergies: NO KNOWN ALLERGIES (01/08/13) Home Med List: Aspirin (Aspirin*) 81 MG TAB.CHEW 1 TAB PO DAILY HEART HEALTH (Reported) Metoprolol Tartrate 25 MG TABLET 1 TAB PO BID HEART (Reported) Pravastatin Sodium 10 MG TABLET 1 TAB PO DAILY CHOLESTROL (Reported) Current Medications: Current Medications Sig/Beatriz Start time Last Medication Dose Route Stop Time Status Admin Acetaminophen 650 MG Q6P PRN 07/22 1345 AC PO Alprazolam 0 .STK-MED ONE 07/22 1405 DC PO Alprazolam 0.25 MG ONCE ONE 07/22 1400 DC 07/22 PO 07/22 1401 1404 Aspirin 0 .STK-MED ONE 07/22 1405 DC PO Aspirin 81 MG DAILY 07/22 1342 AC 07/22 PO 1404 Diphenhydramine HCl 25 MG Q6P PRN 07/22 1345 AC IV Docusate Sodium 100 MG BID 07/22 2200 AC 07/22 PO 2213 Enoxaparin Sodium 40 MG DAILY 07/23 1000 AC SC Hydromorphone HCl 0.5 MG Q4P PRN 07/22 1345 AC IV Lorazepam 0.5 MG ONCE ONE 07/22 1315 DC 07/22 IV 07/22 1316 1310 Lorazepam 0 .STK-MED ONE 07/22 1306 DC .ROUTE Metoprolol Tartrate 25 MG BID 07/22 2200 AC 07/22 PO 2214 Morphine Sulfate 0 .STK-MED ONE 07/22 1039 DC .ROUTE Morphine Sulfate 2 MG ONCE ONE 07/22 1030 DC 07/22 IV 07/22 1031 1041 Ondansetron HCl 4 MG Q6P PRN 07/22 1345 AC IV Oxycodone HCl 0 .STK-MED ONE 07/22 1405 DC PO Oxycodone HCl 5 MG Q6H 07/22 1345 AC 04/25 PO 0322 Polyethylene Glycol 17 GM AT BEDTIME 07/22 2200 AC 07/22 PO 2214 Pravastatin Sodium 10 MG DAILY 07/22 1343 AC 07/22 PO 1413 Senna/Docusate Sodium 2 TAB AT BEDTIME 07/22 2200 AC 07/22 PO 2214 Sodium Chloride 1,000 ML BOLUS ONE 07/22 1030 DC 07/22 IV 07/22 1129 1041 Review of Systems Review of Systems: She denies headaches or dizziness. Patient has chronic shortness of breath(COPD ) not associated with productive cough chest pain or hemoptysis. Patient denies dysuria hematuria. Patient denies bone pain. 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 Home Who Do You Live With? spouse Primary Language: Italian Smoking Status: Former Smoker ETOH Use: denies use Illicit Drug Use: denies illicit drug use Functional Ability ADLs Independent: dressing, eating, toileting, bathing. Ambulation: independent IADLs Independent: shopping, housework, finances, food prep, telephone, transportation , medication admin. Exam & Diagnostic Data Vital Signs and I&O Vital Signs Date Time Temp Pulse Resp B/P B/P Pulse O2 O2 Flow FiO2 Mean Ox Delivery Rate 07/23 0629 98.9 80 20 110/62 93 Room Air 07/22 2214 89 166/84 07/22 2154 98.1 89 16 166/84 96 Room Air 07/22 1601 98.1 102 20 124/66 94 Room Air 07/22 1216 98.2 84 22 131/77 94 Room Air 07/22 1038 110 170/94 07/22 1031 96 07/22 0958 98.1 128 24 166/90 95 Room Air Intake & Output 07/23 0800 07/23 0000 07/22 1600 Intake Total 360 1120 Output Total Balance 360 1120 Intake, IV 0 1000 Intake, Oral 360 120 Number 0 Bowel Movements Patient 174 lb 174 lb Weight Weight Reported by Patient Measurement Method Gen.: in NAD ENT: Sclera anicteric Chest: Normal respiratory effort, decreased breath sounds Cor: RRR, no extra sounds Abdomen: Soft, bowel sounds present, protuberant, no significant tenderness, no rebound Extremities: Without clubbing, cyanosis, or asymmetric edema Neurology: Alert and oriented 3, no gross deficit Skin: No rashes Last 48 Hours of Lab Results: Laboratory Tests 07/23 07/22 07/22 0650 1312 1142 Chemistry Sodium Pending Potassium Pending Chloride Pending Carbon Dioxide Pending Anion Gap Pending BUN Pending Creatinine Pending BUN/Creatinine Ratio Pending Lactic Acid Cancelled Total Bilirubin Pending Direct Bilirubin Pending AST Pending ALT Pending Alkaline Phosphatase Pending Total Protein Pending Albumin Pending Urines Urine Color (YEL,AMB,STR) YEL Urine Clarity (CLEAR) CLEAR Urine pH (5.0 - 8.0) 7.0 Ur Specific [place] (1.001 - 1.035) <= 1.005 Urine Protein (NEG,<30 MG/DL) NEG Urine Ketones (NEG) NEG Urine Nitrite (NEG) NEG Urine Bilirubin (NEG) NEG Urine Urobilinogen (0.1 - 1.0 EU/dl) 0.2 Ur Leukocyte Esterase (NEG) NEG Ur Microscopic EXAM NOT REQUIRED Urine Hemoglobin (NEG) NEG Urine Glucose (N MG/DL) NEG 07/22 1028 Chemistry Sodium (137 - 145 mmol/L) 138 Potassium (3.5 - 5.1 mmol/L) 3.9 Chloride (98 - 107 mmol/L) 100 Carbon Dioxide (22 - 30 mmol/L) 25 Anion Gap (5 - 16) 13 BUN (7 - 17 mg/dL) 10 Creatinine (0.5 - 1.0 mg/dL) 0.6 Estimated GFR (>60 ml/min) > 60 BUN/Creatinine Ratio (7 - 25 %) 16.7 Glucose (65 - 99 mg/dL) 158 H Lactic Acid (0.7 - 2.1 mmol/L) 1.8 Calcium (8.4 - 10.2 mg/dL) 9.7 Total Bilirubin (0.2 - 1.3 mg/dL) 1.0 AST (14 - 36 U/L) 57 H ALT (9 - 52 U/L) 82 H Alkaline Phosphatase (<127 U/L) 350 H Troponin I (< 0.11 ng/ml) < 0.01 Total Protein (6.3 - 8.2 g/dL) 7.3 Albumin (3.5 - 5.0 g/dL) 3.7 Globulin (1.9 - 4.2 gm/dL) 3.6 Albumin/Globulin Ratio (1.1 - 2.2 %) 1.0 L Amylase (30 - 110 U/L) 45 Lipase (23 - 300 U/L) 53 Hematology CBC w Diff MAN DIFF ORDERED WBC (4.8 - 10.8 /CUMM) 20.6 H RBC (4.20 - 5.40 /CUMM) 5.40 Hgb (12.0 - 16.0 G/DL) 15.2 Hct (37 - 47 %) 45.0 MCV (81.0 - 99.0 FL) 83.4 MCH (27.0 - 31.0 PG) 28.2 RDW (11.5 - 14.5 %) 13.7 Plt Count (130 - 400 /CUMM) 314 MPV (7.4 - 10.4 FL) 9.1 Gran % (42.2 - 75.2 %) 71.5 Lymphocytes % (20.5 - 51.1 %) 20.7 Monocytes % (1.7 - 9.3 %) 7.1 Eosinophils % (0 - 5 %) 0.2 Basophils % (0.0 - 2.0 %) 0.5 Absolute Granulocytes (1.4 - 6.5 /CUMM) 14.6 H Absolute Lymphocytes (1.2 - 3.4 /CUMM) 4.2 H Absolute Monocytes (0.10 - 0.60 /CUMM) 1.5 H Absolute Eosinophils (0.0 - 0.7 /CUMM) 0 Absolute Basophils (0.0 - 0.2 /CUMM) 0.1 Platelet Estimate (ADEQUATE) ADEQUATE Normocytic RBCs VERIFIED Normochromic RBCs VERIFIED PUBS MCHC (33.0 - 37.0 G/DL) 33.8 Imaging/Other Studies: CT-abdomen and pelvis-apple core lesion of distal colon, liver metastases, omental metastases, pulmonary nodules Assessment/Plan Assessment: 1. Presumed metastatic colon cancer-Constellation of findings suggest primary colon cancer with l widespread metastases. Of concern is the dramatic change in the patient's bowel habits, suggestive of near obstruction. Recommend- GI consultation for colonoscopy. This will allow a tissue diagnosis and assess degree of obstruction. If significant obstruction, Patient may then need palliation-? Stent ? Palliative colectomy. CEA Chest x-ray 2. Leukocytosis-likely secondary to malignancy. There are no signs or symptoms of infection. I would also think it is unlikely the patient has a myeloproliferative disorder. I have discussed my recommendations with the patient. Recommendations: .. Consult Acknowledgment - Thank you for your consult request.
--- NOTE | 2016-07-23 09:00 | NUR ---
LATE ENTRY: PT'S LOVENOX AND ASA HELD FOR NOW PER DR. RÍOS PT PENDING GI CONSULT TODAY AND MAY NEED COLONOSCOPY. PT STABLE AND IN NO DISTRESS. WILL CONT TO MONITOR.
--- NOTE | 2016-07-23 09:31 | Admission Certification ---
Admission Certification Certification Statement - As attending physician, I certify that at the time of - admission, based on clinical presentation, severity of - symptoms, need for further diagnostic testing and - therapeutic interventions, and risk of adverse outcomes - without in-hospital treatment, in my clinical assessment, - this patient requires an acute hospital stay for a minimum - of two nights or longer. I have also considered psychsocial - factors such as support system, advanced age, financial - issues, cognitive issues, and failed out-patient treatments, - past re-admission history, safety of patient, and lack of - compliance as applicable. Specific rationale supporting this admission is: Metastatic colon cancer
--- NOTE | 2016-07-23 09:36 | PN- Att Addend ---
Attending Addendum Attending Brief Note Patient complains of pain in the abdomen. General Appearance: Alert, No Acute Distress Skin: Grossly normal HEENT: PEERLA Neck: Supple, No JVD Cardiovascular: Regular Rate, Normal S1, Normal S2, No Murmurs Lungs: Clear to Auscultation, Normal Air Movement Abdomen: Distended abdomen and tenderness generalized Assessment 71-year-old with history of ruptured abdominal aortic aneurysm status post endovascular aortic repair. History of abdominal compartment syndrome status post repair, hypertension, hyperlipidemia presenting with abdominal pain. CAT scan suggested descending colon apple core lesion with metastatic cyst involving omentum, liver and lungs. She is currently on clear liquid diet awaiting for colonoscopy and tissue diagnosis. She may require colonic stenting versus colectomy for impending obstruction. Patient and family aware of the diagnosis. Leukocytosis likely reactive and there are no signs of infection. Plan Start clear liquid diet Diagnostic colonoscopy GI and colorectal surgery consult Continue current meds Patient is full code Current Medications Sig/Beatriz Start time Last Medication Dose Route Stop Time Status Admin Acetaminophen 650 MG Q6P PRN 07/22 1345 AC PO Alprazolam 0 .STK-MED ONE 07/22 1405 DC PO Alprazolam 0.25 MG ONCE ONE 07/22 1400 DC 07/22 PO 07/22 1401 1404 Aspirin 0 .STK-MED ONE 07/22 1405 DC PO Aspirin 81 MG DAILY 07/22 1342 AC 07/22 PO 1404 Diphenhydramine HCl 25 MG Q6P PRN 07/22 1345 AC IV Docusate Sodium 100 MG BID 07/22 2200 AC 07/22 PO 2213 Enoxaparin Sodium 40 MG DAILY 07/23 1000 AC SC Hydromorphone HCl 0.5 MG Q4P PRN 07/22 1345 AC IV Lorazepam 0.5 MG ONCE ONE 07/22 1315 DC 07/22 IV 07/22 1316 1310 Lorazepam 0 .STK-MED ONE 07/22 1306 DC .ROUTE Metoprolol Tartrate 25 MG BID 07/22 2200 AC 07/22 PO 2214 Morphine Sulfate 0 .STK-MED ONE 07/22 1039 DC .ROUTE Morphine Sulfate 2 MG ONCE ONE 07/22 1030 DC 07/22 IV 07/22 1031 1041 Ondansetron HCl 4 MG Q6P PRN 07/22 1345 AC IV Oxycodone HCl 0 .STK-MED ONE 07/22 1405 DC PO Oxycodone HCl 5 MG Q6H 07/22 1345 AC 07/23 PO 0322 Polyethylene Glycol 17 GM AT BEDTIME 07/22 2200 AC 07/22 PO 2214 Pravastatin Sodium 10 MG DAILY 07/22 1343 AC 07/22 PO 1413 Senna/Docusate Sodium 2 TAB AT BEDTIME 07/22 2200 AC 07/22 PO 2214 Sodium Chloride 1,000 ML BOLUS ONE 07/22 1030 DC 07/22 IV 07/22 1129 1041 Laboratory Tests 07/23 07/22 07/22 0650 1312 1142 Chemistry Sodium (137 - 145 mmol/L) 137 Potassium (3.5 - 5.1 mmol/L) 3.8 Chloride (98 - 107 mmol/L) 102 Carbon Dioxide (22 - 30 mmol/L) 23 Anion Gap (5 - 16) 11 BUN (7 - 17 mg/dL) 9 Creatinine (0.5 - 1.0 mg/dL) 0.7 Estimated GFR (>60 ml/min) > 60 BUN/Creatinine Ratio (7 - 25 %) 12.9 Lactic Acid Cancelled Total Bilirubin (0.2 - 1.3 mg/dL) 1.0 Direct Bilirubin (< 0.4 mg/dL) 0.4 AST (14 - 36 U/L) 47 H ALT (9 - 52 U/L) 72 H Alkaline Phosphatase (<127 U/L) 299 H Total Protein (6.3 - 8.2 g/dL) 6.4 Albumin (3.5 - 5.0 g/dL) 3.2 L Urines Urine Color (YEL,AMB,STR) YEL Urine Clarity (CLEAR) CLEAR Urine pH (5.0 - 8.0) 7.0 Ur Specific [place] (1.001 - 1.035) <= 1.005 Urine Protein (NEG,<30 MG/DL) NEG Urine Ketones (NEG) NEG Urine Nitrite (NEG) NEG Urine Bilirubin (NEG) NEG Urine Urobilinogen (0.1 - 1.0 EU/dl) 0.2 Ur Leukocyte Esterase (NEG) NEG Ur Microscopic EXAM NOT REQUIRED Urine Hemoglobin (NEG) NEG Urine Glucose (N MG/DL) NEG 07/22 1028 Chemistry Sodium (137 - 145 mmol/L) 138 Potassium (3.5 - 5.1 mmol/L) 3.9 Chloride (98 - 107 mmol/L) 100 Carbon Dioxide (22 - 30 mmol/L) 25 Anion Gap (5 - 16) 13 BUN (7 - 17 mg/dL) 10 Creatinine (0.5 - 1.0 mg/dL) 0.6 Estimated GFR (>60 ml/min) > 60 BUN/Creatinine Ratio (7 - 25 %) 16.7 Glucose (65 - 99 mg/dL) 158 H Lactic Acid (0.7 - 2.1 mmol/L) 1.8 Calcium (8.4 - 10.2 mg/dL) 9.7 Total Bilirubin (0.2 - 1.3 mg/dL) 1.0 AST (14 - 36 U/L) 57 H ALT (9 - 52 U/L) 82 H Alkaline Phosphatase (<127 U/L) 350 H Troponin I (< 0.11 ng/ml) < 0.01 Total Protein (6.3 - 8.2 g/dL) 7.3 Albumin (3.5 - 5.0 g/dL) 3.7 Globulin (1.9 - 4.2 gm/dL) 3.6 Albumin/Globulin Ratio (1.1 - 2.2 %) 1.0 L Amylase (30 - 110 U/L) 45 Lipase (23 - 300 U/L) 53 Hematology CBC w Diff MAN DIFF ORDERED WBC (4.8 - 10.8 /CUMM) 20.6 H RBC (4.20 - 5.40 /CUMM) 5.40 Hgb (12.0 - 16.0 G/DL) 15.2 Hct (37 - 47 %) 45.0 MCV (81.0 - 99.0 FL) 83.4 MCH (27.0 - 31.0 PG) 28.2 RDW (11.5 - 14.5 %) 13.7 Plt Count (130 - 400 /CUMM) 314 MPV (7.4 - 10.4 FL) 9.1 Gran % (42.2 - 75.2 %) 71.5 Lymphocytes % (20.5 - 51.1 %) 20.7 Monocytes % (1.7 - 9.3 %) 7.1 Eosinophils % (0 - 5 %) 0.2 Basophils % (0.0 - 2.0 %) 0.5 Absolute Granulocytes (1.4 - 6.5 /CUMM) 14.6 H Absolute Lymphocytes (1.2 - 3.4 /CUMM) 4.2 H Absolute Monocytes (0.10 - 0.60 /CUMM) 1.5 H Absolute Eosinophils (0.0 - 0.7 /CUMM) 0 Absolute Basophils (0.0 - 0.2 /CUMM) 0.1 Platelet Estimate (ADEQUATE) ADEQUATE Normocytic RBCs VERIFIED Normochromic RBCs VERIFIED PUBS MCHC (33.0 - 37.0 G/DL) 33.8 Vital Signs Date Time Temp Pulse Resp B/P B/P Pulse O2 O2 Flow FiO2 Mean Ox Delivery Rate 07/23 0629 98.9 80 20 110/62 93 Room Air 07/22 2214 89 166/84 07/22 2154 98.1 89 16 166/84 96 Room Air 07/22 1601 98.1 102 20 124/66 94 Room Air 07/22 1216 98.2 84 22 131/77 94 Room Air 07/22 1038 110 170/94 07/22 1031 96 07/22 0958 98.1 128 24 166/90 95 Room Air
--- NOTE | 2016-07-23 10:45 | RADIOLOGY REPORT ---
EXAMINATION: XR CHEST CLINICAL INFORMATION: Mass in colon. Evaluate for lung nodules. COMPARISON: Chest x-ray dated 01/13/2013 and 01/09/2013. CT scan of the abdomen and pelvis dated 07/22/2016. TECHNIQUE: 2 views of the chest were obtained. FINDINGS: The cardiomediastinal silhouette is within normal limits in size. Mild calcification of the aortic arch is seen. Lungs are hyperinflated, consistent with obstructive lung disease. There is a small left-sided pleural effusion and associated left basilar reticular opacity, most likely related to subsegmental atelectasis. As seen on the CT scan, there are innumerable small nodular densities seen throughout the lungs bilaterally, highly suspicious for metastatic disease in this patient with colon mass. Mild biapical pleural thickening and reticulation is seen, consistent with scarring. No definite hilar enlargement is seen to suspect hilar adenopathy. Diffuse osteopenia is seen with multilevel mild vertebral spurring. IMPRESSION: 1. Obstructive lung disease with superimposed innumerable bilateral diffuse nodular opacities in the lungs, suspicious for metastatic disease. 2. Small left-sided pleural effusion and associated left basilar subsegmental atelectasis.
--- NOTE | 2016-07-23 13:47 | PN- Housestaff ---
Subjective Follow-up For: Abdominal pain Subjective: Seen and examined patient. She is very anxious about having a diet to eat. States the pain is controlled currently. Denies fever, chills, chest pain, shortness of breath. Review of Systems Constitutional: Denies: chills, diaphoresis, fever, malaise, weakness, unexplained weight loss. Cardiovascular: Denies: chest pain, edema, orthopena, palpitations, peripheral edema, syncope. Respiratory: Denies: cough, hemoptysis, orthopnea, short of breath, sputum production, stridor, wheezing. Gastrointestinal: Denies: abdominal pain, bloating, constipation, diarrhea, distention, bowel incontinence, melena, nausea, bloody stool, changes in stool, vomiting, steatorrhea. Objective Last 24 Hrs of Vital Signs/I&O Vital Signs Date Time Temp Pulse Resp B/P B/P Pulse O2 O2 Flow FiO2 Mean Ox Delivery Rate 07/23 1012 74 148/70 07/23 0629 98.9 80 20 110/62 93 Room Air 07/22 2214 89 166/84 07/22 2154 98.1 89 16 166/84 96 Room Air 07/22 1601 98.1 102 20 124/66 94 Room Air Intake & Output 07/23 1600 07/23 0800 07/23 0000 Intake Total 360 Output Total Balance 360 Intake, IV 0 Intake, Oral 360 Number 0 Bowel Movements Patient 174 lb Weight Weight Reported by Patient Measurement Method Physical Exam General Appearance: Alert, Oriented X3, Cooperative, No Acute Distress Cardiovascular: Regular Rate, Normal S1, Normal S2 Lungs: Clear to Auscultation, Normal Air Movement Abdomen: Normal Bowel Sounds, Soft, diffuse mild tenderness Extremities: No Edema Current Medications: Current Medications Sig/Beatriz Start time Last Medication Dose Route Stop Time Status Admin Acetaminophen 650 MG Q6P PRN 07/22 1345 AC PO Aspirin 81 MG DAILY 07/22 1342 AC 07/22 PO 1404 Diphenhydramine HCl 25 MG Q6P PRN 07/22 1345 AC IV Docusate Sodium 100 MG BID 07/22 2199 AC 07/23 PO 1011 Enoxaparin Sodium 40 MG DAILY 07/23 1000 AC SC Hydromorphone HCl 0.5 MG Q4P PRN 07/22 1345 AC IV Metoprolol Tartrate 25 MG BID 07/22 2199 AC 07/23 PO 1012 Ondansetron HCl 4 MG Q6P PRN 07/22 1345 AC IV Oxycodone HCl 5 MG Q6H 07/22 1345 AC 07/23 PO 1428 Polyethylene Glycol 17 GM AT BEDTIME 07/22 2200 AC 07/22 PO 2214 Pravastatin Sodium 10 MG DAILY 07/22 1343 AC 07/23 PO 1012 Senna/Docusate Sodium 2 TAB AT BEDTIME 07/22 2200 AC 07/22 PO 2214 Last 24 Hrs of Lab/Jorge Luis Results Last 24 Hrs of Labs/Mics: Laboratory Tests 07/23/16 0650: Anion Gap 11, Estimated GFR > 60, BUN/Creatinine Ratio 12.9, Total Bilirubin 1.0 , Direct Bilirubin 0.4, AST 47 H, ALT 72 H, Alkaline Phosphatase 299 H, Total Protein 6.4, Albumin 3.2 L Assessment/Plan Assessment: 71 year-old woman former smoker with medical history significant for a ruptured abdominal aortic aneurysm status post endovascular aortic aneurysm repair (2012) . Abdominal compartment syndrome status post surgery,hypertension, hyperlipidemia brought to ED by her for worsening abdominal pain. Found to have 4.7 cm "apple core" type lesion of the descending colon, most compatible with primary colonic adenocarcinoma. There is associated peritoneal disease involving the omentum and adjacent mesentery with small to moderate volume of intraperitoneal fluid with multiple hepatic metastases and pulmonary metastases. Current admission for abdominal pain. Hospital day 1 No events overnight, afebrile blood pressure stable saturating 94% on room air states pain is controlled. Chest x-ray done today shows obstructive lung disease with superimposed a bilateral diffuse nodular opacities. Upon speaking to her today she does not wish to know a lot of facts about her situation. Problem list: primary colonic adenocarcinoma with metasases hypertension hyperlipidemia Plan: Admit to gen med, vitals per protocol Surgery, Gasteroentology and cardiology consults placed and recommendations appreciated Pain control with Dilaudid and Roxicodone continue metoprolol Xanax for anxiety DVT prophylaxis with Lovenox on clear liquid diet full code Problem List: 1. AAA (abdominal aortic aneurysm, ruptured) 2. Colon cancer 3. Liver metastases 4. Lung metastasis Pain Ratin Pain Location: abdomen Pain Goal: Pain 4 or less Pain Plan: current regimen Tomorrow's Labs & Rationales: cbc
[2016-07-23 14:46] VITALS: BP 126/72
--- NOTE | 2016-07-23 15:00 | NUR ---
LATE ENTRY: DR. RÍOS NOTIFIED RN THAT WE MAY GIVE PT'S DOSE OF LOVENOX AND ASA TODAY GI MD UNLIKELY TO SEE PT TODAY. REPORT GIVEN TO ONCOMING RN. TO CONT TO MONITOR.
--- NOTE | 2016-07-23 17:59 | NUR ---
ALERT AND ORIENTED X 3. VITAL SIGNS STABLE. DENIES CHEST PAIN. + PULSES. ON ROOM AIR. STEADY GAIT. SKIN IS C/D/I. NO DISTRESS NOTED. WILL CONTINUE TO MONITOR
--- NOTE | 2016-07-23 18:22 | Cons- Gastroenterology ---
General Information and HPI Consulting Request Date of Consult: 07/23/16 (MD TAHMINA/GASTROENTEROLOGY) [facility] Reason for Consult: Abdominal pain Abnormal colon on CT scan Source of Information: patient, old records History of Present Illness: 71-year-old female with one month of progressive abdominal pain, which became severe on the day of admission. The pain has been alleviated by lying down, and passing flatus. There has been progressive constipation, and no blood per rectum. The patient denies nausea, vomiting, or worse abdominal bloating than her baseline. She has had some recent indigestion treated with a PPI. She is not aware of weight loss. There is no family history of colon cancer. She had a remote colonoscopy, perhaps 40 years ago. She is an ex-smoker. Allergies/Medications Allergies: Coded Allergies: NO KNOWN ALLERGIES (01/08/13) Home Med List: Aspirin (Aspirin*) 81 MG TAB.CHEW 1 TAB PO DAILY HEART HEALTH (Reported) Metoprolol Tartrate 25 MG TABLET 1 TAB PO BID HEART (Reported) Pravastatin Sodium 10 MG TABLET 1 TAB PO DAILY CHOLESTROL (Reported) Current Medications: Current Medications Sig/Beatriz Start time Last Medication Dose Route Stop Time Status Admin Acetaminophen 650 MG Q6P PRN 07/22 1345 AC PO Aspirin 81 MG DAILY 07/22 1342 AC 07/23 PO 1619 Diphenhydramine HCl 25 MG Q6P PRN 07/22 1345 AC IV Docusate Sodium 100 MG BID 07/22 2200 AC 07/23 PO 1011 Enoxaparin Sodium 40 MG DAILY 07/23 1000 AC 07/23 SC 1618 Hydromorphone HCl 0.5 MG Q4P PRN 07/22 1345 AC IV Metoprolol Tartrate 25 MG BID 07/22 2200 AC 07/23 PO 1012 Ondansetron HCl 4 MG Q6P PRN 07/22 1345 AC IV Oxycodone HCl 5 MG Q6H 07/22 1345 AC 07/23 PO 1428 Polyethylene Glycol 17 GM AT BEDTIME 07/22 2200 AC 07/22 PO 2214 Pravastatin Sodium 10 MG DAILY 07/22 1343 AC 07/23 PO 1012 Senna/Docusate Sodium 2 TAB AT BEDTIME 07/22 2200 AC 07/22 PO 2214 Past History Travel History Traveled to [place] past 21 day No Medical History Blood Transfusion Hx: Yes Neurological: NONE EENT: NONE Cardiovascular: hypertension, hyperlipidemia Respiratory: emphysema Gastrointestinal: ABDOMINAL COMPARTMENT SYNDROME Hepatic: NONE Renal: NONE Musculoskeletal: NONE Psychiatric: NONE Endocrine: NONE Blood Disorders: NONE Cancer(s): colon/rectal cancer 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 Home Who Do You Live With? spouse Primary Language: Malay Smoking Status: Former Smoker ETOH Use: denies use Illicit Drug Use: denies illicit drug use Functional Ability ADLs Independent: dressing, eating, toileting, bathing. Ambulation: independent IADLs Independent: shopping, housework, finances, food prep, telephone, transportation , medication admin. Employment History Employment: Retired Review of Systems Review of Systems Constitutional: Denies: chills, fever, unexplained weight loss. EENTM: Denies: icterus, epistaxis. Cardiovascular: Denies: chest pain, syncope. Respiratory: Denies: cough, short of breath. GI: Reports: see HPI. Genitourinary: Denies: dysuria, hematuria. Musculoskeletal: Denies: muscle pain, neck pain. Skin: Denies: jaundice, lesions. Neurological/Psychological: Denies: cognitive dysfunction, confusion. Hematologic/Endocrine: Denies: bruising, bleeding. Exam & Diagnostic Data Vital Signs and I&O Vital Signs Date Time Temp Pulse Resp B/P B/P Pulse O2 O2 Flow FiO2 Mean Ox Delivery Rate 07/24 1599 Room Air 07/23 1446 98.9 78 20 126/72 94 Room Air 07/23 1012 74 148/70 07/23 0629 98.9 80 20 110/62 93 Room Air 07/22 2214 89 166/84 07/22 2154 98.1 89 16 166/84 96 Room Air Intake & Output 07/23 1600 07/23 0400 07/22 1600 07/22 0400 07/21 1600 07/21 0400 Intake Total 360 1120 Output Total Balance 360 1120 Intake, IV 0 1000 Intake, Oral 360 120 Number 0 0 Bowel Movements Patient 174 lb 174 lb Weight Weight Reported by Patient Measurement Method Physical Exam: Well developed well-nourished white female, no apparent distress. Alert and oriented with normal cognition. Skin normal. No adenopathy. Head and neck normal. Heart regular rhythm without murmur. Lungs clear bilaterally. Abdomen is mildly distended and soft, with numerous scars, and normal bowel sounds; there is tenderness in the left lower quadrant without palpable mass, fullness, or hernia, and there is no organomegaly. Extremities are without clubbing, cyanosis and edema. Pulses are intact bilaterally. Results Pertinent Lab Results: Laboratory Tests 07/23 07/22 07/22 0650 1312 1142 Chemistry Sodium (137 - 145 mmol/L) 137 Potassium (3.5 - 5.1 mmol/L) 3.8 Chloride (98 - 107 mmol/L) 102 Carbon Dioxide (22 - 30 mmol/L) 23 Anion Gap (5 - 16) 11 BUN (7 - 17 mg/dL) 9 Creatinine (0.5 - 1.0 mg/dL) 0.7 Estimated GFR (>60 ml/min) > 60 BUN/Creatinine Ratio (7 - 25 %) 12.9 Lactic Acid Cancelled Total Bilirubin (0.2 - 1.3 mg/dL) 1.0 Direct Bilirubin (< 0.4 mg/dL) 0.4 AST (14 - 36 U/L) 47 H ALT (9 - 52 U/L) 72 H Alkaline Phosphatase (<127 U/L) 299 H Total Protein (6.3 - 8.2 g/dL) 6.4 Albumin (3.5 - 5.0 g/dL) 3.2 L Urines Urine Color (YEL,AMB,STR) YEL Urine Clarity (CLEAR) CLEAR Urine pH (5.0 - 8.0) 7.0 Ur Specific [place] (1.001 - 1.035) <= 1.005 Urine Protein (NEG,<30 MG/DL) NEG Urine Ketones (NEG) NEG Urine Nitrite (NEG) NEG Urine Bilirubin (NEG) NEG Urine Urobilinogen (0.1 - 1.0 EU/dl) 0.2 Ur Leukocyte Esterase (NEG) NEG Ur Microscopic EXAM NOT REQUIRED Urine Hemoglobin (NEG) NEG Urine Glucose (N MG/DL) NEG 07/22 1028 Chemistry Sodium (137 - 145 mmol/L) 138 Potassium (3.5 - 5.1 mmol/L) 3.9 Chloride (98 - 107 mmol/L) 100 Carbon Dioxide (22 - 30 mmol/L) 25 Anion Gap (5 - 16) 13 BUN (7 - 17 mg/dL) 10 Creatinine (0.5 - 1.0 mg/dL) 0.6 Estimated GFR (>60 ml/min) > 60 BUN/Creatinine Ratio (7 - 25 %) 16.7 Glucose (65 - 99 mg/dL) 158 H Lactic Acid (0.7 - 2.1 mmol/L) 1.8 Calcium (8.4 - 10.2 mg/dL) 9.7 Total Bilirubin (0.2 - 1.3 mg/dL) 1.0 AST (14 - 36 U/L) 57 H ALT (9 - 52 U/L) 82 H Alkaline Phosphatase (<127 U/L) 350 H Troponin I (< 0.11 ng/ml) < 0.01 Total Protein (6.3 - 8.2 g/dL) 7.3 Albumin (3.5 - 5.0 g/dL) 3.7 Globulin (1.9 - 4.2 gm/dL) 3.6 Albumin/Globulin Ratio (1.1 - 2.2 %) 1.0 L Amylase (30 - 110 U/L) 45 Lipase (23 - 300 U/L) 53 Hematology CBC w Diff MAN DIFF ORDERED WBC (4.8 - 10.8 /CUMM) 20.6 H RBC (4.20 - 5.40 /CUMM) 5.40 Hgb (12.0 - 16.0 G/DL) 15.2 Hct (37 - 47 %) 45.0 MCV (81.0 - 99.0 FL) 83.4 MCH (27.0 - 31.0 PG) 28.2 RDW (11.5 - 14.5 %) 13.7 Plt Count (130 - 400 /CUMM) 314 MPV (7.4 - 10.4 FL) 9.1 Gran % (42.2 - 75.2 %) 71.5 Lymphocytes % (20.5 - 51.1 %) 20.7 Monocytes % (1.7 - 9.3 %) 7.1 Eosinophils % (0 - 5 %) 0.2 Basophils % (0.0 - 2.0 %) 0.5 Absolute Granulocytes (1.4 - 6.5 /CUMM) 14.6 H Absolute Lymphocytes (1.2 - 3.4 /CUMM) 4.2 H Absolute Monocytes (0.10 - 0.60 /CUMM) 1.5 H Absolute Eosinophils (0.0 - 0.7 /CUMM) 0 Absolute Basophils (0.0 - 0.2 /CUMM) 0.1 Platelet Estimate (ADEQUATE) ADEQUATE Normocytic RBCs VERIFIED Normochromic RBCs VERIFIED PUBS MCHC (33.0 - 37.0 G/DL) 33.8 Imaging/Other Studies: CT scan of the abdomen and pelvis: IMPRESSION: 1. Decrease in size of the abdominal aortic aneurysm sac status post aortobiiliac stenting. No evidence of recurrent rupture. The right common iliac limb of the aneurysm is slightly increased in size as compared to prior (2.4 vs. 2.2 cm). 2. A 4.7 cm "apple core" type lesion of the descending colon, most compatible with primary colonic adenocarcinoma. There is associated peritoneal disease involving the omentum and adjacent mesentery with small to moderate volume of intraperitoneal fluid. 3. Multiple hepatic metastases. 4. Innumerable pulmonary metastases. 5. Mild retroperitoneal adenopathy. 6. Mild superior endplate compression deformity at the L2 vertebral body, likely acute to subacute in nature. Assessment/Plan Assessment/Recommendations: The patient presents with progressive abdominal pain and change in bowel habits, and imaging suggesting metastatic colon cancer. The patient's pain is concerning for obstruction. Recommendations * Clear liquid diet; nothing by mouth after 6 AM tomorrow * Magnesium citrate 1 bottle tonight * Two 1 L tap water enemas between 6 and 7 AM tomorrow morning * Colonoscopy tomorrow; possible stent insertion, if there is a malignant lesion with evident obstruction. * Please check INR, and repeat CBC. Check carcinoembryonic antigen Copies To: GERSON LOERA,CONSUELO Bean; BRIGID LOERA,SUDHA Burton; JOSE G LOERA,[facility] Consult Acknowledgment - Thank you for your consult request.
--- NOTE | 2016-07-23 18:57 | Cons- General Surgery ---
General Information and HPI Consulting Request Date of Consult: 07/23/16 Requested By: CINTHIA ARAIZA MD Allergies/Medications Allergies: Coded Allergies: NO KNOWN ALLERGIES (01/08/13) Home Med List: Aspirin (Aspirin*) 81 MG TAB.CHEW 1 TAB PO DAILY HEART HEALTH (Reported) Metoprolol Tartrate 25 MG TABLET 1 TAB PO BID HEART (Reported) Pravastatin Sodium 10 MG TABLET 1 TAB PO DAILY CHOLESTROL (Reported) Current Medications: I reviewed Current Medications Sig/Beatriz Start time Last Medication Dose Route Stop Time Status Admin Acetaminophen 650 MG Q6P PRN 07/22 1345 AC PO Aspirin 81 MG DAILY 07/22 1342 AC 07/23 PO 1619 Diphenhydramine HCl 25 MG Q6P PRN 07/22 1345 AC IV Docusate Sodium 100 MG BID 07/22 2200 AC 07/23 PO 1011 Enoxaparin Sodium 40 MG DAILY 07/23 1000 AC 07/23 SC 1618 Hydromorphone HCl 0.5 MG Q4P PRN 07/22 1345 AC IV Metoprolol Tartrate 25 MG BID 07/22 2200 AC 07/23 PO 1012 Ondansetron HCl 4 MG Q6P PRN 07/22 1345 AC IV Oxycodone HCl 5 MG Q6H 07/22 1345 AC 07/23 PO 1428 Polyethylene Glycol 17 GM AT BEDTIME 07/22 2200 AC 07/22 PO 2214 Pravastatin Sodium 10 MG DAILY 07/22 1343 AC 07/23 PO 1012 Senna/Docusate Sodium 2 TAB AT BEDTIME 07/22 2200 AC 07/22 PO 2214 Past History Medical History Blood Transfusion Hx: Yes Neurological: NONE EENT: NONE Cardiovascular: hypertension, hyperlipidemia Respiratory: emphysema Gastrointestinal: ABDOMINAL COMPARTMENT SYNDROME Hepatic: NONE Renal: NONE Musculoskeletal: NONE Psychiatric: NONE Endocrine: NONE Blood Disorders: NONE Cancer(s): colon/rectal cancer 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 Home Who Do You Live With? spouse Primary Language: Armenian Smoking Status: Former Smoker ETOH Use: denies use Illicit Drug Use: denies illicit drug use Functional Ability ADLs Independent: dressing, eating, toileting, bathing. Ambulation: independent IADLs Independent: shopping, housework, finances, food prep, telephone, transportation , medication admin. Employment History Employment: Retired Exam & Diagnostic Data Vital Signs and I&O I reviewed Vital Signs Date Time Temp Pulse Resp B/P B/P Pulse O2 O2 Flow FiO2 Mean Ox Delivery Rate 07/24 1599 Room Air 07/23 1446 98.9 78 20 126/72 94 Room Air 07/23 1012 74 148/70 07/23 0629 98.9 80 20 110/62 93 Room Air 07/22 2214 89 166/84 07/22 2154 98.1 89 16 166/84 96 Room Air I reviewed Intake & Output 07/23 1600 07/23 0800 07/23 0000 07/22 1600 07/22 0800 07/22 0000 Intake Total 360 1120 Output Total Balance 360 1120 Intake, IV 0 1000 Intake, Oral 360 120 Number 0 0 Bowel Movements Patient 174 lb 174 lb Weight Weight Reported by Patient Measurement Method Last 24 Hours of Labs: I reviewed Laboratory Tests 07/23 0650 Chemistry Sodium (137 - 145 mmol/L) 137 Potassium (3.5 - 5.1 mmol/L) 3.8 Chloride (98 - 107 mmol/L) 102 Carbon Dioxide (22 - 30 mmol/L) 23 Anion Gap (5 - 16) 11 BUN (7 - 17 mg/dL) 9 Creatinine (0.5 - 1.0 mg/dL) 0.7 Estimated GFR (>60 ml/min) > 60 BUN/Creatinine Ratio (7 - 25 %) 12.9 Total Bilirubin (0.2 - 1.3 mg/dL) 1.0 Direct Bilirubin (< 0.4 mg/dL) 0.4 AST (14 - 36 U/L) 47 H ALT (9 - 52 U/L) 72 H Alkaline Phosphatase (<127 U/L) 299 H Total Protein (6.3 - 8.2 g/dL) 6.4 Albumin (3.5 - 5.0 g/dL) 3.2 L Assessment/Plan Consult Acknowledgment - Thank you for your consult request.
[2016-07-23 21:30] VITALS: BP 150/70
--- NOTE | 2016-07-24 06:43 | PN- Oncology ---
Subjective Subjective: Feeling generally better with decreased abdominal pain Review of Systems: 12 point review of systems otherwise unchanged Objective Vital Signs and I&Os Vital Signs Date Time Temp Pulse Resp B/P B/P Pulse O2 O2 Flow FiO2 Mean Ox Delivery Rate 07/23 2151 87 150/70 07/230 98.3 87 20 150/70 97 Room Air 07/23 1600 Room Air 07/23 1446 98.9 78 20 126/72 94 Room Air 07/23 1012 74 148/70 Intake & Output 07/24 0807/24 0000 07/23 1600 07/23 0807/23 0000 07/22 1600 Intake Total 283 334 7313 Output Total Balance 811 944 8523 Intake, IV 0 1000 Intake, Oral 600 360 120 Number 0 0 Bowel Movements Patient 174 lb 174 lb Weight Weight Reported by Patient Measurement Method Gen.: in NAD ENT: Sclera anicteric Chest: Normal respiratory effort, clear breath sounds Cor: RRR, no extra sounds Abdomen: Soft, bowel sounds present, no tenderness, no rebound Extremities: Without clubbing, cyanosis, or asymmetric edema Neurology: Alert and oriented 3, no gross deficit Current Medications: Current Medications Sig/Beatriz Start time Last Medication Dose Route Stop Time Status Admin Acetaminophen 650 MG Q6P PRN 07/22 1345 AC PO Aspirin 81 MG DAILY 07/22 1342 AC 07/23 PO 1619 Diphenhydramine HCl 25 MG Q6P PRN 07/22 1345 AC IV Docusate Sodium 100 MG BID 07/22 2199 AC 07/23 PO 1011 Enoxaparin Sodium 40 MG DAILY 07/23 1000 AC 07/23 SC 1618 Hydromorphone HCl 0.5 MG Q4P PRN 07/22 1345 AC IV Magnesium Citrate 300 ML ONE ONE 07/235 DC 07/23 PO 07/23 Metoprolol Tartrate 25 MG BID 07/22 2199 AC 07/23 PO 2151 Ondansetron HCl 4 MG Q6P PRN 07/22 1345 AC IV Oxycodone HCl 5 MG Q6H 07/22 1345 AC 07/24 PO 0158 Polyethylene Glycol 17 GM AT BEDTIME 07/22 2199 AC 07/22 PO 2214 Pravastatin Sodium 10 MG DAILY 07/22 1343 AC 07/23 PO 1012 Senna/Docusate Sodium 2 TAB AT BEDTIME 07/22 2199 AC 07/22 PO 2214 Results Last 24 Hours of Lab Results: Laboratory Tests 07/23 0650 Chemistry Sodium (137 - 145 mmol/L) 137 Potassium (3.5 - 5.1 mmol/L) 3.8 Chloride (98 - 107 mmol/L) 102 Carbon Dioxide (22 - 30 mmol/L) 23 Anion Gap (5 - 16) 11 BUN (7 - 17 mg/dL) 9 Creatinine (0.5 - 1.0 mg/dL) 0.7 Estimated GFR (>60 ml/min) > 60 BUN/Creatinine Ratio (7 - 25 %) 12.9 Total Bilirubin (0.2 - 1.3 mg/dL) 1.0 Direct Bilirubin (< 0.4 mg/dL) 0.4 AST (14 - 36 U/L) 47 H ALT (9 - 52 U/L) 72 H Alkaline Phosphatase (<127 U/L) 299 H Total Protein (6.3 - 8.2 g/dL) 6.4 Albumin (3.5 - 5.0 g/dL) 3.2 L Assessment/Plan Assessment/Recommendations: Presumed metastatic colon cancer-colonoscopy today with stent placement if necessary, biopsies to be performed Further recommendations to follow after today's procedure
[2016-07-24 06:55] VITALS: BP 130/72
[2016-07-24 08:04] LABS: ABSOLUTE BASOPHIL COUNT 0.1 /CUMM (0.0-0.2); ABSOLUTE EOSINOPHIL COUNT 0.2 /CUMM (0.0-0.7); ABSOLUTE GRANULOCYTE CT 6.5 /CUMM (1.4-6.5); ABSOLUTE LYMPH COUNT 4.1 /CUMM (1.2-3.4); ABSOLUTE MONOCYTE COUNT 1.1 /CUMM (0.10-0.60); BASOPHIL % 0.5 % (0.0-2.0); EOSINOPHIL % 1.4 % (0-5); GRANULOCYTE % 54.4 % (42.2-75.2); HEMATOCRIT 41.3 % (37-47); MEAN CORPUSCULAR HGB CONC 33.3 G/DL (33.0-37.0); MEAN CORPUSCULAR VOLUME 84.3 FL (81.0-99.0); MEAN PLATELET VOLUME 9.4 FL (7.4-10.4); PLATELET COUNT 286 /CUMM (130-400); RBC DISTRIBUTION WIDTH 14.2 % (11.5-14.5); WHITE BLOOD CELL COUNT 11.9 /CUMM (4.8-10.8)
[2016-07-24 08:30] LABS: PT 11.1 SEC (9.4-12.5)
--- NOTE | 2016-07-24 09:45 | PN- Att Addend ---
Attending Addendum Attending Brief Note Patient reports improved abdominal pain General Appearance: Alert, No Acute Distress Skin: Grossly normal HEENT: PEERLA Neck: Supple, No JVD Cardiovascular: Regular Rate, Normal S1, Normal S2, No Murmurs Lungs: Clear to Auscultation, Normal Air Movement Abdomen: Distended abdomen and tenderness generalized Assessment 71-year-old with history of ruptured abdominal aortic aneurysm status post endovascular aortic repair. History of abdominal compartment syndrome status post repair, hypertension, hyperlipidemia presenting with abdominal pain. CAT scan suggested descending colon apple core lesion with metastatic lesions involving omentum, liver and lungs. She is currently on clear liquid diet awaiting for colonoscopy, tissue diagnosis and possible stenting. Plan colonoscopy today advnace diet after procedure Continue current meds Patient is full code, will have further discussions about code status Current Medications Sig/Beatriz Start time Last Medication Dose Route Stop Time Status Admin Acetaminophen 650 MG Q6P PRN 07/22 1345 AC PO Aspirin 81 MG DAILY 07/22 1342 AC 07/23 PO 1619 Diphenhydramine HCl 25 MG Q6P PRN 07/22 1345 AC IV Docusate Sodium 100 MG BID 07/22 2200 AC 07/24 PO 0806 Enoxaparin Sodium 40 MG DAILY 07/23 1000 AC 07/23 SC 1618 Hydromorphone HCl 0.5 MG Q4P PRN 07/22 1345 AC IV Magnesium Citrate 300 ML ONE ONE 07/23 2044 DC 07/23 PO 07/23 Metoprolol Tartrate 25 MG BID 07/22 2200 AC 07/24 PO 0806 Ondansetron HCl 4 MG Q6P PRN 07/22 1345 AC IV Oxycodone HCl 5 MG Q6H 07/22 1345 AC 07/24 PO 0805 Polyethylene Glycol 17 GM AT BEDTIME 07/22 2199 AC 07/22 PO 2214 Pravastatin Sodium 10 MG DAILY 07/22 1343 AC 07/24 PO 0806 Senna/Docusate Sodium 2 TAB AT BEDTIME 07/22 2199 AC 07/22 PO 221 Laboratory Tests 07/24 0658 Coagulation PT (9.4 - 12.5 SEC) 11.1 INR (0.90 - 1.19) 1.06 Hematology CBC w Diff MAN DIFF ORDERED WBC (4.8 - 10.8 /CUMM) 11.9 H RBC (4.20 - 5.40 /CUMM) 4.90 Hgb (12.0 - 16.0 G/DL) 13.7 Hct (37 - 47 %) 41.3 MCV (81.0 - 99.0 FL) 84.3 MCH (27.0 - 31.0 PG) 28.0 RDW (11.5 - 14.5 %) 14.2 Plt Count (130 - 400 /CUMM) 286 MPV (7.4 - 10.4 FL) 9.4 Gran % (42.2 - 75.2 %) 54.4 Lymphocytes % (20.5 - 51.1 %) 34.1 Monocytes % (1.7 - 9.3 %) 9.6 H Eosinophils % (0 - 5 %) 1.4 Basophils % (0.0 - 2.0 %) 0.5 Absolute Granulocytes (1.4 - 6.5 /CUMM) 6.5 Absolute Lymphocytes (1.2 - 3.4 /CUMM) 4.1 H Absolute Monocytes (0.10 - 0.60 /CUMM) 1.1 H Absolute Eosinophils (0.0 - 0.7 /CUMM) 0.2 Absolute Basophils (0.0 - 0.2 /CUMM) 0.1 Platelet Estimate (ADEQUATE) VERIFIED BY SMEAR Normocytic RBCs VERIFIED Normochromic RBCs VERIFIED PUBS MCHC (33.0 - 37.0 G/DL) 33.3 Vital Signs Date Time Temp Pulse Resp B/P B/P Pulse O2 O2 Flow FiO2 Mean Ox Delivery Rate 07/24 0806 74 130/70 07/24 0655 97.9 74 18 130/72 93 Room Air 07/23 2151 87 150/70 07/23 2130 98.3 87 20 150/70 97 Room Air 07/23 1600 Room Air 07/23 1446 98.9 78 20 126/72 94 Room Air 07/23 1012 74 148/70
--- NOTE | 2016-07-24 11:12 | PN- Housestaff ---
Subjective Follow-up For: abdominal pain colon mass with mets Subjective: seen and examined patient, she is very anxious and does not wish to be informed of her medical issues, options or prognosis. Denies fever, chills, shortness of breath, chest pain. Review of Systems Constitutional: Denies: chills, diaphoresis, fever, malaise, weakness, unexplained weight loss. Cardiovascular: Denies: chest pain, edema, orthopena, palpitations, peripheral edema, syncope. Respiratory: Denies: cough, hemoptysis, orthopnea, short of breath, sputum production, stridor, wheezing. Objective Last 24 Hrs of Vital Signs/I&O Vital Signs Date Time Temp Pulse Resp B/P B/P Pulse O2 O2 Flow FiO2 Mean Ox Delivery Rate 07/24 0806 74 130/70 07/24 0655 97.9 74 18 130/72 93 Room Air 07/23 2151 87 150/70 07/23 2130 98.3 87 20 150/70 97 Room Air Intake & Output 07/24 1600 07/24 0800 07/24 0000 Intake Total 600 10 600 Output Total 1500 Balance -900 10 600 Intake, IV 600 10 Intake, Oral 0 600 Number 2 Bowel Movements Output, Urine 1500 Physical Exam General Appearance: Alert, Oriented X3, Cooperative, No Acute Distress Cardiovascular: Regular Rate, Normal S1, Normal S2 Lungs: Normal Air Movement Abdomen: tenderness to palpation Extremities: No Edema Current Medications: Current Medications Sig/Beatriz Start time Last Medication Dose Route Stop Time Status Admin Acetaminophen 650 MG Q6P PRN 07/22 1345 AC PO Alprazolam 0.25 MG ONCE ONE 07/24 1545 DC 07/24 PO 07/24 1546 1543 Aspirin 81 MG DAILY 07/22 1342 AC 07/23 PO 1619 Chlorhexidine 1 GM .STK-MED ONE 07/24 1457 DC Gluconate TOP 07/24 1458 Diphenhydramine HCl 25 MG Q6P PRN 07/22 1345 AC IV Docusate Sodium 100 MG BID 07/22 2200 AC 07/24 PO 0806 Enoxaparin Sodium 40 MG DAILY 07/23 1000 AC 07/23 SC 1618 Hydromorphone HCl 0.5 MG Q4P PRN 07/22 1345 AC IV Magnesium Citrate 300 ML ONE ONE 07/235 DC 07/23 PO 07/23 Metoprolol Tartrate 25 MG BID 07/22 220 AC 07/24 PO 0806 Ondansetron HCl 4 MG Q6P PRN 07/22 1345 AC IV Oxycodone HCl 5 MG Q6H 07/22 1345 AC 07/24 PO 1520 Patient Medication 1 ED .STK-MED ONE 07/24 1411 RI Teaching ED 07/24 1412 Polyethylene Glycol 17 GM AT BEDTIME 07/22 2199 AC 07/22 PO 2214 Pravastatin Sodium 10 MG DAILY 07/22 1343 AC 07/24 PO 0806 Senna/Docusate Sodium 2 TAB AT BEDTIME 07/22 2200 AC 07/22 PO 2214 Last 24 Hrs of Lab/Jorge Luis Results Last 24 Hrs of Labs/Mics: Laboratory Tests 07/24/16 0658: PT 11.1, INR 1.06, CBC w Diff MAN DIFF ORDERED, RBC 4.90, MCV 84.3, MCH 28.0, RDW 14.2, MPV 9.4, Gran % 54.4, Lymphocytes % 34.1, Monocytes % 9.6 H, Eosinophils % 1.4, Basophils % 0.5, Absolute Granulocytes 6.5, Absolute Lymphocytes 4.1 H, Absolute Monocytes 1.1 H, Absolute Eosinophils 0.2, Absolute Basophils 0.1, Platelet Estimate VERIFIED BY SMEAR, Normocytic RBCs VERIFIED, Normochromic RBCs VERIFIED, PUBS MCHC 33.3 Assessment/Plan Assessment: 71 year-old woman former smoker with medical history significant for a ruptured abdominal aortic aneurysm status post endovascular aortic aneurysm repair (2012) . Abdominal compartment syndrome status post surgery,hypertension, hyperlipidemia brought to ED by her for worsening abdominal pain. Found to have 4.7 cm "apple core" type lesion of the descending colon, most compatible with primary colonic adenocarcinoma. There is associated peritoneal disease involving the omentum and adjacent mesentery with small to moderate volume of intraperitoneal fluid with multiple hepatic metastases and pulmonary metastases. Current admission for abdominal pain. Hospital day 2 afebrile blood pressure stable saturating 94% on room air states pain is controlled. will undergo colonscopy with possible stenting and biopsy today. Had a family meeting with Patient and regarding goal of care. Mrs Rtoh wished to remain full code and stated she will this about the possibility of Palliative services at home. Problem list: primary colonic adenocarcinoma with metasases hypertension hyperlipidemia Plan: continue gen med, vitals per protocol Surgery, Gasteroentology and oncology on board appreciated recommendations Pain control with Dilaudid and Roxicodone continue metoprolol Xanax for anxiety prn DVT prophylaxis with Lovenox will advance diet to full liquid diet after colonoscopy full code * spoke to Dr. Paiz after colonoscopy, palliative stent was place partially to allieviate the obstruction. Will monitor how she tolerates her full liquid diet and if she has pain then the stent will need to be readjusted. Problem List: 1. Colon cancer 2. Liver metastases 3. Lung metastasis 4. AAA (abdominal aortic aneurysm, ruptured) Pain Ratin Pain Location: abdomen Pain Goal: Pain 4 or less Pain Plan: current regimen Tomorrow's Labs & Rationales: cbc
--- NOTE | 2016-07-24 16:02 | RADIOLOGY REPORT ---
EXAMINATION: XR ABDOMEN CLINICAL INDICATION: 71-year-old female status post colonic stent placement for colonic obstruction due to underlying tumor. COMPARISON: Abdominal radiograph done on 01/11/2013. TECHNIQUE: AP view of the abdomen. FINDINGS: A radiopaque metallic stent is identified, projecting in the region of the junction between the descending and proximal sigmoid colon, new since 01/11/2013. Please correlate clinically as to the exact site of stent placement. Postoperative changes of aortic stent graft is noted, unchanged. Nonspecific bowel gas pattern is noted with presence of rectal gas. IMPRESSION: Interval placement of a radiopaque metallic stent is seen projecting in the region of the junction between the descending and proximal sigmoid colon, new since 01/11/2013.
--- NOTE | 2016-07-24 16:02 | RADIOLOGY REPORT ---
EXAMINATION: XR FLUOROSCOPY CLINICAL INFORMATION: Colonic stent placement under fluoroscopy. COMPARISON: None TECHNIQUE: 4 spot radiographs were obtained at the time of the procedure. FINDINGS: Multiple spot radiographs shows evidence and endoscopic device and radiopaque wire projecting in the region of the lower pelvis. Full procedural details will be dictated by Dr. Duke. FLUOROSCOPY TIME: 6 minutes, 43 seconds. NUMBER OF IMAGES: 4 IMPRESSION: 4 spot radiographs were obtained at the time of the colonic stent placement under fluoroscopy. Full procedural details will be dictated by Dr. Duke.
--- NOTE | 2016-07-24 16:28 | Proc Note Colonoscopy ---
Colonoscopy Procedure Procedure Date: 07/24/16 Procedure Type: colonoscopy with biopsy and stent insertion Sheep Or Calf Grader: Sushil Duke M.D. ASA Classification: III Indications: Abdominal pain and constipation Imaging suggesting metastatic colon cancer, with left-sided lesion Instrument (Colonoscope): single channel Meds Received: MAC Patient's Tolerance: good Complications: none Extent Reached: cecum Prep: poor Procedure: The patient signed informed consent, was brought to the fluoroscopy suite, was placed in the Chan position, and medicated. Examination of the rectum was normal. The Olympus high-definition variable stiffness colonoscope was inserted through the anus and advanced to the cecum, identified by the appendiceal orifice and ileocecal valve. Retroflexion was not performed in the rectum. Findings: There was abundant thick opaque stool throughout. The rectum was normal. The distal sigmoid was normal. There was a several centimeter neoplastic lesion beginning at approximately 25 cm. This was only intermittently identified given the degree of preparation. Multiple biopsies were obtained. Careful deflection of the tip of the colonoscope allowed for passage through the lesion. It was not obstructing per se. The colonoscope was advanced to the cecum; no other neoplastic/obstructing lesions were identified. Because of widely metastatic disease, and in order to prophylax obstruction in anticipation of palliation, a Cook Evolution stent (uncovered, 25/30 mm x 8 cm) was passed through the lesion. Using fluoroscopic guidance only (it was not possible to see the lesion and stent introducer because of abundance of stool which continuously passed from above), the stent was deployed. Unfortunately the distal end of the stent was positioned in the midst of the lesion rather than below. Attempt at grasping the distal end with a biopsy forceps and pulling the stent distally was unsuccessful. Impression: * Left-sided neoplastic lesion, nonobstructing at this point * Stent placement; malpositioned. Recommendations: * Await pathology * Oncology follow-up * Begin full liquid diet, and if tolerated advance to low fiber * With clinical evidence of obstruction, corroborated by imaging, will place a second stent. This will be technically easier (will overlap first stent). * Note that the patient's abdominal pain may be secondary to omental/peritoneal disease, and not only obstruction. CC: GERSON LOERA,CONSUELO Bean; BRIGID LOERA,SUDHA ARAIZA MD,[facility]
[2016-07-24 21:04] VITALS: BP 162/84
[2016-07-25 06:29] VITALS: BP 152/76
--- NOTE | 2016-07-25 06:52 | PN- Oncology ---
Subjective Subjective: Patient complaining of minimal abdominal pain, patient complaining of being hungry. I carefully reviewed results of the patient's colonoscopy yesterday. Review of Systems: 12 point review of systems otherwise nonspecific Objective Vital Signs and I&Os Vital Signs Date Time Temp Pulse Resp B/P B/P Pulse O2 O2 Flow FiO2 Mean Ox Delivery Rate 07/25 628 98.6 91 20 152/76 93 Room Air 07/25 2103 97.8 96 22 162/84 95 Room Air 07/24 2052 96 162/84 07/24 0806 74 130/70 07/24 0655 97.9 74 18 130/72 93 Room Air Intake & Output 07/25 0800 07/25 0000 07/24 1600 07/24 0800 07/24 0000 07/23 1600 Intake Total 400 650 600 10 600 Output Total 979 196 3978 Balance -350 350 -900 10 600 Intake, IV 600 10 Intake, Oral 400 650 0 600 Number 2 0 Bowel Movements Output, Urine 309 020 [id number] Gen.: in NAD ENT: Sclera anicteric Chest: Normal respiratory effort, clear breath sounds Cor: RRR, no extra sounds Abdomen: Soft, bowel sounds present, no significant tenderness, no rebound Extremities: Without clubbing, cyanosis, or asymmetric edema Neurology: Alert and oriented 3, no gross deficit Skin: No rashes Current Medications: Current Medications Sig/Beatriz Start time Last Medication Dose Route Stop Time Status Admin Acetaminophen 650 MG Q6P PRN 07/22 1345 AC PO Alprazolam 0.25 MG ONCE ONE 07/24 1545 DC 07/24 PO 07/24 1546 1543 Aspirin 81 MG DAILY 07/22 1342 AC 07/23 PO 1619 Chlorhexidine 1 GM .STK-MED ONE 07/24 1457 DC Gluconate TOP 07/24 1458 Diphenhydramine HCl 25 MG Q6P PRN 07/22 1345 AC IV Docusate Sodium 100 MG BID 07/22 2199 AC 07/24 PO 08 Enoxaparin Sodium 40 MG DAILY 07/23 1000 AC 07/23 SC 1618 Hydromorphone HCl 0.5 MG Q4P PRN 07/22 1345 AC IV Metoprolol Tartrate 25 MG BID 07/22 2199 AC 07/24 PO 2052 Ondansetron HCl 4 MG Q6P PRN 07/22 1345 AC IV Oxycodone HCl 5 MG Q6H 07/22 1345 AC 07/25 PO 0133 Patient Medication 1 ED .STK-MED ONE 07/24 1411 CO Teaching ED 07/24 1412 Polyethylene Glycol 17 GM AT BEDTIME 07/22 2200 AC 07/22 PO 2214 Pravastatin Sodium 10 MG DAILY 07/22 1343 AC 07/24 PO 0806 Senna/Docusate Sodium 2 TAB AT BEDTIME 07/22 2200 AC 07/22 PO 2214 Results Last 24 Hours of Lab Results: Laboratory Tests 07/24 0658 Coagulation PT (9.4 - 12.5 SEC) 11.1 INR (0.90 - 1.19) 1.06 Hematology CBC w Diff MAN DIFF ORDERED WBC (4.8 - 10.8 /CUMM) 11.9 H RBC (4.20 - 5.40 /CUMM) 4.90 Hgb (12.0 - 16.0 G/DL) 13.7 Hct (37 - 47 %) 41.3 MCV (81.0 - 99.0 FL) 84.3 MCH (27.0 - 31.0 PG) 28.0 RDW (11.5 - 14.5 %) 14.2 Plt Count (130 - 400 /CUMM) 286 MPV (7.4 - 10.4 FL) 9.4 Gran % (42.2 - 75.2 %) 54.4 Lymphocytes % (20.5 - 51.1 %) 34.1 Monocytes % (1.7 - 9.3 %) 9.6 H Eosinophils % (0 - 5 %) 1.4 Basophils % (0.0 - 2.0 %) 0.5 Absolute Granulocytes (1.4 - 6.5 /CUMM) 6.5 Absolute Lymphocytes (1.2 - 3.4 /CUMM) 4.1 H Absolute Monocytes (0.10 - 0.60 /CUMM) 1.1 H Absolute Eosinophils (0.0 - 0.7 /CUMM) 0.2 Absolute Basophils (0.0 - 0.2 /CUMM) 0.1 Platelet Estimate (ADEQUATE) VERIFIED BY SMEAR Normocytic RBCs VERIFIED Normochromic RBCs VERIFIED PUBS MCHC (33.0 - 37.0 G/DL) 33.3 Assessment/Plan Assessment/Recommendations: Metastatic colon cancer-colonoscopy performed yesterday, consistent with primary colon cancer, stent placed. Patient was not obstructed. Recommend- Hopefully patient can be discharged today Follow-up in my office I do discussion today with the patient about her colonoscopy and the likely diagnosis of colon cancer. We discussed the need for chemotherapy.
--- NOTE | 2016-07-25 07:22 | Patient Discharge Instructions ---
Discharge Instructions General Discharge Information You were seen/treated for: abdominal pain Special Instructions: please follow up with your Primary care doctor within two weeks of discharge please follow with your oncologist on Jul 31 2016 please follow up with your gasterontologist within two weeks of discharge Diet Recommended Diet: low residue diet Acute Coronary Syndrome Inclusion Criteria At DC or during hospital stay patient has or had the following: ACS DIAGNOSIS No Discharge Core Measures Meds if any: Prescribed or Continued at Discharge Meds if any: NOT Prescribed or Continued at Discharge Congestive Heart Failure Inclusion Criteria At DC or during hospital stay patient has or had the following: CHF DIAGNOSIS No Discharge Core Measures Meds if any: Prescribed or Continued at Discharge Meds if any: NOT Prescribed or Continued at Discharge Cerebrovascular accident Inclusion Criteria At DC or during hospital stay patient has or had the following: CVA/TIA Diagnosis No Discharge Core Measures Meds if any: Prescribed or Continued at Discharge Meds if any: NOT Prescribed or Continued at Discharge Venous thromboembolism Inclusion Criteria VTE Diagnosis No VTE Type NONE VTE Confirmed by (Test) NONE Discharge Core Measures - Per Current guidelines, there needs to be overlap - treatment for the first 5 days of Warfarin therapy. - If discharged on Warfarin prior to 5 days of - overlap therapy, the patient will need to be - assessed for post discharge needs including - *Post discharge parental anticoagulation - *Warfarin and/or parental anticoagulation education - *Follow up date to check INR post discharge At least 5 days overlap therapy as Inpatient No Meds if any: Prescribed or Continued at Discharge Note: Overlap Therapy is Warfarin and Anticoagulant Meds if any: NOT Prescribed or Continued at Discharge
[2016-07-25 08:51] LABS: ABSOLUTE BASOPHIL COUNT 0.1 /CUMM (0.0-0.2); ABSOLUTE EOSINOPHIL COUNT 0.3 /CUMM (0.0-0.7); ABSOLUTE GRANULOCYTE CT 8.2 /CUMM (1.4-6.5); ABSOLUTE LYMPH COUNT 4.9 /CUMM (1.2-3.4); ABSOLUTE MONOCYTE COUNT 1.2 /CUMM (0.10-0.60); BASOPHIL % 0.6 % (0.0-2.0); EOSINOPHIL % 1.9 % (0-5); GRANULOCYTE % 56.3 % (42.2-75.2); HEMATOCRIT 41.2 % (37-47); MEAN CORPUSCULAR HGB 28.1 PG (27.0-31.0); MEAN CORPUSCULAR HGB CONC 33.2 G/DL (33.0-37.0); MEAN CORPUSCULAR VOLUME 84.5 FL (81.0-99.0); MEAN PLATELET VOLUME 9.3 FL (7.4-10.4); RBC DISTRIBUTION WIDTH 14.2 % (11.5-14.5); RED BLOOD CELL CT 4.87 /CUMM (4.20-5.40); WHITE BLOOD CELL COUNT 14.6 /CUMM (4.8-10.8)
[2016-07-25 10:04] LABS: PLATELET COUNT 300 /CUMM (130-400)
--- NOTE | 2016-07-25 12:46 | PN- Housestaff ---
Subjective Follow-up For: abdominal pain colon mass with multiple mets Subjective: seen and examined patient, tolerating her full liquid diet. Reports that her pain is controlled. She is very eager to advance her diet and feels really hungry. Review of Systems Constitutional: Denies: chills, diaphoresis, fever, malaise, weakness, unexplained weight loss. Cardiovascular: Denies: chest pain, edema, orthopena, palpitations, peripheral edema, syncope. Respiratory: Denies: cough, hemoptysis, orthopnea, short of breath, sputum production, stridor, wheezing. Gastrointestinal: Denies: abdominal pain, bloating, constipation, diarrhea, distention, bowel incontinence, melena, nausea, bloody stool, changes in stool, vomiting, steatorrhea. Genitourinary: Denies: discharge, dysuria, frequency, hematuria, hesitation, nocturia, pain, urgency. Objective Last 24 Hrs of Vital Signs/I&O Vital Signs Date Time Temp Pulse Resp B/P B/P Pulse O2 O2 Flow FiO2 Mean Ox Delivery Rate 07/25 0629 98.6 91 20 152/76 93 Room Air 07/24 2104 97.8 96 22 162/84 95 Room Air 07/24 2053 96 162/84 Intake & Output 07/25 1600 07/25 0800 07/25 0000 Intake Total 1000 400 650 Output Total 750 300 Balance 1000 -350 350 Intake, Oral 1000 400 650 Output, Urine 750 300 Patient 174 lb Weight Physical Exam General Appearance: Alert, Oriented X3, Cooperative, No Acute Distress Cardiovascular: Regular Rate, Normal S1, Normal S2 Lungs: Clear to Auscultation, Normal Air Movement Abdomen: Soft, mild tenderness Assessment/Plan Assessment: 71 year-old woman former smoker with medical history significant for a ruptured abdominal aortic aneurysm status post endovascular aortic aneurysm repair (2012) . Abdominal compartment syndrome status post surgery,hypertension, hyperlipidemia brought to ED by her for worsening abdominal pain. Found to have 4.7 cm "apple core" type lesion of the descending colon, most compatible with primary colonic adenocarcinoma. There is associated peritoneal disease involving the omentum and adjacent mesentery with small to moderate volume of intraperitoneal fluid with multiple hepatic metastases and pulmonary metastases. Current admission for abdominal pain. Hospital day 2 afebrile blood pressure stable saturating 94% on room air states pain is controlled. S/p stenting and biopsy POD 2. Problem list: primary colonic adenocarcinoma with metasases hypertension hyperlipidemia Plan: continue gen med, vitals per protocol Surgery, Gasteroentology and oncology on board appreciated recommendations She will follow up with Dr. Solomon, Dr. Vásquez and Dr. Duke as outpatient and referrals given Pain control with Dilaudid and Roxicodone continue metoprolol Xanax for anxiety prn DVT prophylaxis with Lovenox will advance diet to low residue diet full code discharge today if she tolerates the diet with palliative care services Problem List: 1. Colon cancer 2. Liver metastases 3. Lung metastasis 4. S/P AAA repair Pain Ratin Pain Location: na Pain Goal: Pain 4 or less Pain Plan: current regimen Tomorrow's Labs & Rationales: none required
--- NOTE | 2016-07-25 12:46 | PN- Att Addend ---
Attending Addendum Attending Brief Note Patient reports improved abdominal pain. General Appearance: Alert, No Acute Distress Skin: Grossly normal HEENT: PEERLA Neck: Supple, No JVD Cardiovascular: Regular Rate, Normal S1, Normal S2, No Murmurs Lungs: Clear to Auscultation, Normal Air Movement Abdomen: Distended abdomen and tenderness generalized Assessment 71-year-old with history of ruptured abdominal aortic aneurysm status post endovascular aortic repair. History of abdominal compartment syndrome status post repair, hypertension, hyperlipidemia presenting with abdominal pain. CAT scan suggested descending colon apple core lesion with metastatic lesions involving omentum, liver and lungs. Now s/p colonoscopy with biopsy and stenting. She will follow up with oncology as outpt for possible palliative chemo. Code status discussion as out patient. Pt prefers ro discuss this with Dr Solomon. Plan Follow with oncology as out pt Continue current meds pain meds and xanax on DC Patient is full code, will have further discussions about code status as outpt. Current Medications Sig/Beatriz Start time Last Medication Dose Route Stop Time Status Admin Acetaminophen 650 MG Q6P PRN 07/22 1345 AC PO Alprazolam 0.25 MG ONCE ONE 07/24 1545 DC 07/24 PO 07/24 1546 1543 Aspirin 81 MG DAILY 07/22 1342 AC 07/25 PO 0919 Chlorhexidine 1 GM .STK-MED ONE 07/24 1457 DC Gluconate TOP 07/24 1458 Diphenhydramine HCl 25 MG Q6P PRN 07/22 1345 AC IV Docusate Sodium 100 MG BID 07/22 2200 AC 07/25 PO 0919 Enoxaparin Sodium 40 MG DAILY 07/23 1000 AC 07/25 SC 0920 Hydromorphone HCl 0.5 MG Q4P PRN 07/22 1345 AC IV Metoprolol Tartrate 25 MG BID 07/22 2200 AC 07/25 PO 0919 Ondansetron HCl 4 MG Q6P PRN 07/22 1345 AC IV Oxycodone HCl 5 MG Q6H 07/22 1345 AC 07/25 PO 0919 Patient Medication 1 ED .STK-MED ONE 07/24 1411 DC Teaching ED 07/24 1412 Polyethylene Glycol 17 GM AT BEDTIME 07/22 2200 AC 07/22 PO 2214 Pravastatin Sodium 10 MG DAILY 07/22 1343 AC 07/25 PO 0919 Senna/Docusate Sodium 2 TAB AT BEDTIME 07/22 2199 AC 07/22 PO 2214 Laboratory Tests 07/25 0640 Hematology CBC w Diff NO MAN DIFF REQ WBC (4.8 - 10.8 /CUMM) 14.6 H RBC (4.20 - 5.40 /CUMM) 4.87 Hgb (12.0 - 16.0 G/DL) 13.7 Hct (37 - 47 %) 41.2 MCV (81.0 - 99.0 FL) 84.5 MCH (27.0 - 31.0 PG) 28.1 RDW (11.5 - 14.5 %) 14.2 Plt Count (130 - 400 /CUMM) 300 MPV (7.4 - 10.4 FL) 9.3 Gran % (42.2 - 75.2 %) 56.3 Lymphocytes % (20.5 - 51.1 %) 33.2 Monocytes % (1.7 - 9.3 %) 8.0 Eosinophils % (0 - 5 %) 1.9 Basophils % (0.0 - 2.0 %) 0.6 Absolute Granulocytes (1.4 - 6.5 /CUMM) 8.2 H Absolute Lymphocytes (1.2 - 3.4 /CUMM) 4.9 H Absolute Monocytes (0.10 - 0.60 /CUMM) 1.2 H Absolute Eosinophils (0.0 - 0.7 /CUMM) 0.3 Absolute Basophils (0.0 - 0.2 /CUMM) 0.1 PUBS MCHC (33.0 - 37.0 G/DL) 33.2 Vital Signs Date Time Temp Pulse Resp B/P B/P Pulse O2 O2 Flow FiO2 Mean Ox Delivery Rate 07/25 628 98.6 91 20 152/76 93 Room Air 07/25 2103 97.8 96 22 16284 95 Room Air 07/24 2052 96
[2016-07-25] MEDS ORDERED: SENNA PLUS TAB1 EACH PO (13:00)
[2016-07-25] MEDS ORDERED: OXYCODONE HCL5 M1 PO (13:00)
[2016-07-25] MEDS ORDERED: XANAX0.25 M1 PO (13:00)
--- NOTE | 2016-07-25 14:24 | NUR ---
NURSING NOTE: PATIENT LEFT FLOOR VIA W/C WITH [employer]OL[employer]ER SERVICES AND SPOUSE FOR DISCHARGE. PATIENT A/OX3, ALL BELONGINGS WITH PATIENT, ALL DISCHARGE INSTRUCTIONS GIVEN TO PATIENT AND FAMILY. ALL PRESCRIPTIONS GIVEN TO SPOUSE FOR PATIENT. PATIENT DENIES ANY PAIN AT THIS TIME. IV DISCONTINUED.
--- NOTE | 2016-08-28 14:33 | Discharge Summary ---
Visit Information Visit Dates Admission Date: 07/22/16 Discharge Date: 07/25/16 Hospital Course Course Attending Physician: CINTHIA ARAIZA MD Primary Care Physician: CONSUELO NIETO MD Consulting Request: Consulting Specialty: General Surgery Consulting Physician: MD Sudha Zavala MD Harold Schwartz, MD Hospital Course: 71 year-old woman former smoker with medical history significant for a ruptured abdominal aortic aneurysm status post endovascular aortic aneurysm repair (2012) . Abdominal compartment syndrome status post surgery,hypertension, hyperlipidemia brought to ED by her for worsening abdominal pain. 1.Primary colonic mass with metastasis CAT scan abdomen and pelvis showed a 4.7 cm "apple core" type lesion of the descending colon, most compatible with primary colonic adenocarcinoma. There was associated peritoneal disease involving the omentum and adjacent mesentery with small to moderate volume of intraperitoneal fluid with multiple hepatic metastases and pulmonary metastases. Patient underwent colonoscopy by Jacob Duke who placed a stent, biopsied the lesion and confirmed there was no mechanical obstruction. patient was evaluated by Dr. Rainey and will follow up as outpatient for possible palliative chemotherapy. Patient and family wanted to discuss CODE STATUS with patient's primary Dr Nieto as outpatient. Allergies: Coded Allergies: NO KNOWN ALLERGIES (01/08/13) Significant Procedures: colonoscopy Impression: * Left-sided neoplastic lesion, nonobstructing at this point * Stent placement; malpositioned. Recommendations: * Await pathology * Oncology follow-up * Begin full liquid diet, and if tolerated advance to low fiber * With clinical evidence of obstruction, corroborated by imaging, will place a second stent. This will be technically easier (will overlap first stent). * Note that the patient's abdominal pain may be secondary to omental/peritoneal disease, and not only obstruction. Disposition Summary Disposition Principal Diagnosis: primary colonic mass with metastasis Additional Diagnosis: abdominal pain hypertension Discharge Disposition: home or self care Discharge Instructions General Discharge Information Code Status: Full Code Patient's Diet: regular diet Patient's Activity: as tolerated Follow-Up Instructions/Appts: follow up biopsy results as outpatient with Dr. Negrete and Dr Nieto. Medications at Discharge Discharge Medications: Continue taking these medications: Metoprolol Tartrate (Metoprolol Tartrate) 25 MG TABLET 1 Tablet ORAL TWICE DAILY Qty = 180 Comments: Last Taken: 07/25/16 Time: 0900 Pravastatin Sodium (Pravastatin Sodium) 10 MG TABLET 1 Tablet ORAL DAILY Qty = 90 Comments: Last Taken: 07/25/16 Time: 0900 Aspirin (Aspirin*) 81 MG TAB.CHEW 1 Tablet ORAL DAILY Comments: Last Taken: 07/25/16 Time: 0900 Start taking the following new medications: Oxycodone HCl (Oxycodone HCl) 5 MG TABLET 5 Milligram ORAL Q6H as needed for PAIN SCALE 4-6 (MODERATE) Qty = 15 No Refills Comments: Last Taken: 07/25/16 Time: 1330 Sennosides/Docusate Sodium (Senna Plus Tablet) 8.6 MG-50 MG TABLET 2 Tablet ORAL AT BEDTIME as needed for constipation Days = 30 No Refills Comments: Last Taken: 07/22/16 Time: 2200 Alprazolam (Xanax) 0.25 MG TABLET 1 Tablet ORAL DAILY NEEDED as needed for anxiety Qty = 15 No Refills Comments: Last Taken: 07/24/16 Time: 1500 Copies To: GERSON LOERA,CONSUELO RAINEY MD,SUDHA Love MD Review Statement Documenting Attending: CINTHIA ARAIZA MD
== END 2016-07-25 14:20 | disposition home health service (06) | DRG 375 ==
LOC: ERH 09:45 → 2NB 13:24 → ERHI 13:24 → ENRESERV 14:02 → 2NB 14:38 → ENPENDDIS 07-25 13:10 → 2NB 07-25 14:20
PROVIDERS: Internal Medicine; Physician Assistant Medical; ADMIT Internal Medicine
PROC: 0D7M8DZ Dilation of Descending Colon with Intraluminal Device, Via Natural or Artificial Opening Endoscopic (ICD-10-PCS; principal; 2016-07-24)
PROC: 0DBM8ZX Excision of Descending Colon, Via Natural or Artificial Opening Endoscopic, Diagnostic (ICD-10-PCS; principal; 2016-07-24)
DX: C18.6 Malignant neoplasm of descending colon (principal); K56.60 Unspecified intestinal obstruction; C78.00 Secondary malignant neoplasm of unspecified lung; C78.7 Secondary malignant neoplasm of liver and intrahepatic bile duct; I10 Essential (primary) hypertension; E78.5 Hyperlipidemia, unspecified; Z87.891 Personal history of nicotine dependence; Z79.82 Long term (current) use of aspirin
CPT/HCPCS: 2NSBP; 74000; 74174; 81003; 82436; 88305; 93005; 93010; 96374; 96375; C1876; J1200; J1650; J2405; J3490

== ENCOUNTER → 2016-08-28 | Day surgery (SDC) | payer OTHER, MEDICARE ==
[~2016-08-28] MED LIST: ASPIRIN81 M4 PO; METOPROLOL TART25 M1 PO; OXYCODONE HCL5 M1 PO; PRAVASTATIN SOD10 M2 PO; SENNA PLUS TAB1 EACH PO; XANAX0.25 M1 PO
--- NOTE | 2016-08-28 09:15 | Operative Report ---
Operative/Inv Procedure Report Surgery Date: 08/28/16 Name of Procedure: Right axillary vein port placement Fluoroscopic guidance Ultrasound guidance Pre-Operative Diagnosis: metastatic colon cancer Post-Operative Diagnosis: Same Estimated Blood Loss: scant Surgeon/Toggler: SHRAVAN LOERA,YULISA Zuñiga Anesthesia: local monitored anesthesi Implants: PowerPort Operative/Procedure Note Note: After consent she was brought to the operating room and laid supine. Sedation was obtained she was prepped and draped on the right neck and chest. The axillary vein was identified with ultrasound guidance. The skin was infiltrated local anesthesia and the vein percutaneously accessed. The wire was placed and confirmation that the wire went into the right atrium was performed with intraoperative fluoroscopy. We then created a field block below the wire. Incision made over the wire and a pocket created inferior to the incision to accept the port. The port was then placed in the pocket and the catheter measured under fluoroscopy. It was trimmed to 22 cm. The dilator was placed over the wire under fluoroscopy. The catheter was then placed into the sheath which was then peeled away without incident. Final fluoroscopic images showed the catheter tip in the right atrium. The port was anchored to the deep subcutaneous tissues tissues with 0 Vicryl suture. Incision was then closed in layers of 3-0 and 4-0 Vicryl. The port was flushed with concentrated heparin. Steri-Strips and sterile dressing applied. Sponge and needle counts are correct CC: GERSON LOERA,CONSUELO Bean; BRIGID LOERA,SUDHA Burton
--- NOTE | 2016-08-28 09:19 | RADIOLOGY REPORT ---
EXAMINATION: XR PORTABLE CHEST CLINICAL INFORMATION: Port-A-Cath insertion. Evaluate for pneumothorax. Check placement. COMPARISON: Multiple prior examinations including spot image during central venous catheter placement and recent chest x-ray June 2016 TECHNIQUE: Portable frontal view of the chest was obtained. FINDINGS: Lines and tubes: A central venous catheter is noted with the tip in the region of the SVC right atrial junction. There is no pneumothorax. Lungs and pleural spaces: Innumerable nodular densities noted throughout the lungs unchanged. The cardiac silhouette mediastinum and pulmonary vascularity are normal. IMPRESSION: Central venous catheter noted without pneumothorax. Persistent innumerable nodular densities throughout both lungs suspicious for metastatic disease.
--- NOTE | 2016-08-28 23:36 | RADIOLOGY REPORT ---
EXAMINATION: INTRAOPERATIVE FLUOROSCOPIC GUIDANCE AND CHEST CLINICAL INFORMATION: Right-sided port placement. COMPARISON: 07/23/2016. TECHNIQUE: Fluoroscopic time was utilized in the OR for Dr. Sabillon. Fluoroscopic images were obtained in the AP projection. FINDINGS: Fluoroscopic guidance was provided during placement of a right-sided port. The final image demonstrates catheter tubing overlying the SVC. FLUOROSCOPY TIME: 33 seconds of fluoroscopic time was utilized for the entirety of this examination. IMPRESSION: Fluoroscopic guidance was provided during placement of a right-sided port. The final image demonstrates catheter tubing overlying the SVC.
== END ==
LOC: STS 02:01
DX: C19 Malignant neoplasm of rectosigmoid junction (principal); C78.7 Secondary malignant neoplasm of liver and intrahepatic bile duct; J43.9 Emphysema, unspecified; Z87.891 Personal history of nicotine dependence; E11.8 Type 2 diabetes mellitus with unspecified complications; Z79.84 Long term (current) use of oral hypoglycemic drugs; I73.9 Peripheral vascular disease, unspecified
CPT/HCPCS: C1788; J0131; J0690; J1644; J2250